=== PATIENT | female | born 1960 | race Caucasian/White ===

== ENCOUNTER → 2017-10-24 10:53 | Outpatient (REF) | payer BC, SELFPAY ==
[2017-10-24 13:47] LABS: Basophils % 0.3 % (0.1-2.0); Eosinophils # 0.1 K/mm3 (0.0-0.4); Eosinophils % 1.3 % (0.1-12.0); Hemoglobin 13.6 g/dL (12.2-16.2); Lymphocytes # 1.9 K/mm3 (0.7-4.5); Mean Corpuscular HGB Conc 31.6 g/dL (31.8-35.4); Mean Corpuscular Hemoglobin 30.9 pg (27.0-31.2); Mean Corpuscular Volume 97.9 fl (81-99); Mean Platelet Volume 11.5 fl (7.4-10.4); Monocytes # 0.3 K/mm3 (0.1-1.0); Monocytes % 4.4 % (1.7-9.3); Neutrophils # 3.9 K/mm3 (1.8-7.8); Platelet Count 173 K/mm3 (142-424); Red Blood Count 4.39 M/mm3 (4.20-5.40); Red Cell Distribution Width 12.8 % (11.5-17.5); White Blood Count 6.2 K/mm3 (4.8-10.8)
[2017-10-24 14:23] LABS: Alanine Aminotransferase 25 U/L (12-78); Albumin Level 3.7 gm/dL (3.4-5.0); Albumin/Globulin Ratio 1.2 (1.1-1.8); Alkaline Phosphatase 78 U/L (46-116); Anion Gap 9.4 mEq/L (5-15); Aspartate Amino Transferase 9 U/L (15-37); Bilirubin,Total 0.2 mg/dL (0.2-1.0); Blood Urea Nitrogen 15 mg/dL (7-18); Calcium 9.3 mg/dL (8.5-10.1); Carbon Dioxide 30 mmol/L (21.0-32.0); Chloride 105 mmol/L (98-107); Chol/HDL Ratio 3.2 (1-3.5); Cholesterol 193 mg/dL (140-200); Creatinine,Serum 0.72 mg/dL (0.55-1.02); Estimated Glomerular Filt Rate 84 ml/min (>60); GFR (African American) 102 ML/MIN (>60); Globulin 3.2 gm/dl (1.3-3.2); Glucose 140 mg/dL (74-106); HDL Cholesterol 61 mg/dL (29-89); LDL Cholesterol 110 mg/dL (0-130); Potassium 4.4 mmoL/L (3.5-5.1); Sodium 140 mmol/L (136-145); Thyroid Stimulating Hormone 0.97 uIU/ml (0.358-3.740); Total Protein,Serum 6.9 gm/dL (6.4-8.2); Triglycerides 109 mg/dL (30-200); VLDL Cholesterol 22 mg/dL (0-40)
[2017-10-24 14:36] LABS: C-Reactive Protein < 0.2 mg/L (0.0-0.9)
[2017-10-24 14:39] LABS: Hemoglobin A1C 7.7 % (0.0-7.0)
[2017-10-24 15:29] LABS: Erythrocyte Sedimentation Rate 25 mm/hr (0-30)
[2017-10-25 14:15] LABS: Anti-Jo-1 <0.2 AI (0.0-0.9); Anti-Smith Antibody <0.2 AI (0.0-0.9); Antichromatin Antibodies <0.2 AI (0.0-0.9); Antiscleroderma-70 Antibodies <0.2 AI (0.0-0.9); RNP Antibodies <0.2 AI (0.0-0.9); Sjogren's Anti-SS-A <0.2 AI (0.0-0.9); Sjogren's Anti-SS-B <0.2 AI (0.0-0.9)
[2017-10-26 12:00] LABS: Anti-Centromere B Antibodies <0.2 AI (0.0-0.9); Anti-Cyclic Citrullinated Pept 5 units (0-19); Anti-DNA (DS) Ab Qn <1 IU/mL (0-9); RA Latex Turbid. <10.0 IU/mL (0.0-13.9)
[2017-10-26 12:01] LABS: Vitamin D 25 Hydroxy 22.2 ng/mL (30.0-100.0)
[2017-10-27 19:13] LABS: Parathyroid Hormone Intact 23 pg/mL (15-65)
== END ==
LOC: LAB 10:53
PROVIDERS: Visit Provider Physician Assistant
DX: E11.9 Type 2 diabetes mellitus without complications (principal); M25.50 Pain in unspecified joint
CPT/HCPCS: 80053; 80061; 82043; 82652; 83036; 83970; 84436; 84443; 85025; 85651; 86038; 86140; 86200; 86431

== ENCOUNTER → 2017-11-09 12:57 | Outpatient (CLI) | payer BC, SELFPAY ==
--- NOTE | 2017-11-09 13:00 | MM_ITS ---
MM Dig screening mamm BI w/CAD CAD Screening COMPARISON: Digital mammograms 02/23/2012 and 03/20/2015 INDICATION: There is a history of breast cancer patient maternal aunt. There is been previous stereotactic biopsy left breast. TECHNIQUE: Standard CC and MLO images were obtained. R2 CAD reviewed. FINDINGS: Moderate fibroglandular densities are seen in the central portions of both breasts. Again noted are 2 biopsy clips left breast one of which is adjacent to a nodular density which is stable. There are couple benign-appearing calcifications right breast. There are stable nodes in both axilla. IMPRESSION: Fibrofatty parenchyma with no suspicious lesion seen recommend yearly follow-up BI-RADS Category: 2 Benign Finding(s) RECOMMENDED FOLLOW-UP: 1YR - 1 YEAR FOLLOW-UP (A letter has been sent to the patient regarding results of the study.)
== END ==
PROVIDERS: Family Provider Physician Assistant; PCP Emergency Medicine; Visit Provider Physician Assistant
DX: Z12.31 Encounter for screening mammogram for malignant neoplasm of breast (principal)
CPT/HCPCS: 77067

== ENCOUNTER → 2017-11-10 11:22 | Outpatient (CLI) | payer BC, SELFPAY ==
--- NOTE | 2017-11-10 11:24 | XR_ITS ---
EXAM: XR cervical spine 5V HISTORY: Neck pain ITS.REASON: pain ORDERING PHYSICIAN: Lidya Osman PATIENT AGE: 56 years COMPARISON: None FINDINGS: Normal alignment. There is moderate to severe degenerative disc disease at C4-C5 and C5-C6 worse at C5-C6 with endplate osteophytes. There is bilateral foraminal narrowing at C5-C6 and mild left foraminal narrowing at C3-C4 and C4-C5. No fracture or dislocation. No lytic or blastic change. IMPRESSION: Degenerative disc disease C4-C5 and C5-C6 with bilateral foraminal narrowing
== END ==
PROVIDERS: PCP Emergency Medicine; Visit Provider Nurse Practitioner Family
DX: M54.2 Cervicalgia (principal)
CPT/HCPCS: 72050

== ENCOUNTER → 2017-12-07 10:50 | Outpatient (CLI) | payer BC, SELFPAY ==
--- NOTE | 2017-12-07 10:51 | CA_ITS ---
PROCEDURE: 2-D M-mode and color Doppler study INDICATIONS FOR THE TEST: Chest painx COPD Heart Murmur Tobacco Smoking Palpitationsx Fatigue Syncope Edema HypertensionxDiabetes Mellitusx Rheumatic Fever SOB MACKAY Obesity Hyperlipidemiax Family History HD Additional History PATIENT INFORMATION HEIGHT: 5'3'' WEIGHT:174 GENDER: Female B/P:105/67 2-D/M-MODE INTERPRETATION: 2-D MEASUREMENTS OBSERVED VALUES IN CMS Right Ventricular Dimension (RVDd) 2.4 Interventricular Septum (Thickness)(IVsd) 1.0 Left Ventricular Internal Dimensions(LVIDd) 3.8 Left Ventricular Posterior Wall (Thickness)(LVPWd) 1.0 Aortic Root 2.7 Aortic Cusp Separation 1.3 Left Atrial Dimensions (LAD) 3.0 2D 1. Left atrium is normal size, left ventricle is normal size, there is no concentric left ventricular hypertrophy, visually estimated ejection fraction 55% with no regional wall motion abnormality. 2. The right atrium and right ventricle are normal size and contractility. 3. The aortic valve is minimally thickened and fibrosed. 4. The mitral and tricuspid valvular grossly normal. 5. The pulmonic valve is poorly visualized. 6. No significant pericardial effusion noted. DOPPLER INTERROGATION: Doppler interrogation of the aortic, mitral and tricuspid valvular presence of mild mitral and tricuspid regurgitation, tricuspid and jet velocity insufficient for calculation of the right ventricular systolic pressure, grade 1 diastolic dysfunction seen without tissue Doppler evidence of raised left atrial pressure. CONCLUSION: 1. Normal left ventricular size, visually estimated ejection fraction 55% with no obvious regional wall motion abnormality. Grade 1 diastolic dysfunction seen without tissue Doppler evidence of raised left atrial pressure. 2. Mild mitral and tricuspid regurgitation 3. No significant pericardial effusion noted.
--- NOTE | 2017-12-07 10:51 | NM_ITS ---
History and Indications: Dysrhythmia, hypertension, diabetes, hyperlipidemia, chest pain and shortness of breath Procedure: Patient exercised on Tucker protocol 7 minutes, resting heart rate was 88 bpm resting blood pressure 124/70, with exercise maximum heart rate achieved was 160 bpm which is greater than 85% of the maximum predicted heart rate , and the blood pressure was 180/74. Test was stopped due to shortness of breath, patient also had mild pressure in the chest. Patient has good exercise capacity achieved 10.1mets of workload on treadmill, the blood pressure response to exercise was adequate. Electrocardiogram: Resting electrocardiogram showed sinus rhythm nonspecific ST-T changes, with exercise occasional premature ventricular complex seen, less than 1.[address] segment depression noted from the baseline EKG. The EKG portion of the exercise Myoview is negative for ischemia Cardiac stress and resting SPECT images: Cardiac stress and rest SPECT images were obtained using technetium 99 Myoview 30.5 mCi at stress and 11.1 mCi at rest, gated SPECT further analysis of segmental wall motion and calculation of the ejection fraction also done. Cardiac stress and rest SPECT images show decreased tracer activity in the anteroseptal area which improves on the resting images suggestive of reversible ischemia, computer derived ejection fraction 57% with no obvious regional wall motion abnormality, right ventricle is normal size and contractility. Conclusion: 1. The EKG portion of the exercise Myoview is negative for ischemia, patient has good exercise capacity achieved 10.1mets of workload on treadmill, the blood pressure response to exercise was adequate, test was started due to chest pressure and shortness of breath. 2. Scintigraphic evidence of mild reversible ischemia involving the anteroseptal wall. Computer derived ejection fraction is 57% with no obvious regional wall motion abnormality, right ventricle is normal size and contractility. 3. Abnormal exercise Myoview study.
--- NOTE | 2017-12-07 12:22 | HMH.ITSHM ---
AMLODIPINE ASA ALENDRONATE METFORMIN LOSARTAN MELOXICAM ESCITALOPRAM ATENOLOL ATORVASTATIN GLIPIZIDE EXOMEPRA CALCIUM VITAMIN D
== END ==
PROVIDERS: Family Provider Physician Assistant; PCP Physician Assistant; Visit Provider Internal Medicine
DX: R07.89 Other chest pain (principal)
CPT/HCPCS: 78452; 93017; 93306; A9502

== ENCOUNTER 2017-12-15 08:00 | Outpatient (RCR) | payer BC, SELFPAY ==
--- NOTE | 2017-11-22 11:05 | HMH.PTOPEV ---
Rehab Outpatient Evaluation Rehab OP Evaluation Start: 11/21/17 11:46 Freq: Status: Active Protocol: Document 11/21/17 11:46 MICHAELMONSERRAT (Rec: 11/21/17 13:21 SHANTANU [id number]) Electronically Signed By Peng Johnson, PT 11/21/17 11:46 Outpatient Therapy Subjective History Subjective History Ms. Ram is a 57 year old female who presents to outpatient PT with BUE pain/ radicular symptoms to both hands L>R of insidious onset since . Pt. reports positive diagnositc imaging for C4-C6 DDD and C5 bone spur . Pt. reports bilateral hip steroid injection that did not provide symptom relief. PMH inludes type II diaetes and R humerus fracture. Pt. currently taking muscle relaxers and Prednisone. Chief Complaint Pain Paresthesia Weakness Decreased Nursing Program Coordinator Strength Symptom Type Burning Numbness Tingling Shooting Symptoms Relieved By Rest/Positioning Prescription Meds Symptoms Aggravated By Sitting Twisting Prior Functional Limitations None Current Functional Limitations Reaching Lifting Housework Driving Sleeping Symptom Description Activity Dependent Level of pain today (0-10) 4 Pain scale - at its best (0-10) 3 Pain scale - at its worst (0-10) 10 Cervical Eval Palpation Cervical Muscles L Cervical Paraspinal L Upper Trapezius Cervical/Thoracic Palpation Findings Tenderness Posture Head/C-Spine Posture Sitting Position Flexed Extended Head/C-Spine Posture Standing Position Flexed Extended Flexibility Deficits Upper Trapezius Muscle Length (R) Moderate Tightness (L) Moderate Tightness Levaetor Scapulae Muscle Length (R) Moderate Tightness (L) Moderate Tightness Scalene Group Muscle Length (R) Moderate Tightness (L) Moderate Tightness Sternocleidomastoid Muscle Length (R) Moderate Tightness
== END 2017-12-15 08:01 | disposition home or self-care (01) ==
LOC: PT 08:00
PROVIDERS: Family Provider Physician Assistant; PCP Emergency Medicine; Visit Provider Nurse Practitioner Family
DX: M54.2 Cervicalgia (principal)
CPT/HCPCS: 97010; 97012; 97014; 97035; 97110; G0283

== ENCOUNTER → 2018-06-26 14:28 | Outpatient (CLI) | payer BC, SELFPAY ==
[2018-06-26 14:35] LABS: Basophils % 0.3 % (0.1-2.0); Eosinophils # 0.1 K/mm3 (0.0-0.4); Eosinophils % 1.9 % (0.1-12.0); Hematocrit 40.8 % (37.0-47.0); Hemoglobin 13.1 g/dL (12.2-16.2); Lymphocytes # 1.6 K/mm3 (0.7-4.5); Lymphocytes % 28.6 % (10-50); Mean Corpuscular HGB Conc 32.2 g/dL (31.8-35.4); Mean Corpuscular Volume 96.1 fl (81-99); Mean Platelet Volume 11.1 fl (7.4-10.4); Monocytes # 0.3 K/mm3 (0.1-1.0); Monocytes % 4.6 % (1.7-9.3); Neutrophils # 3.5 K/mm3 (1.8-7.8); Neutrophils % 64.5 % (37.0-80.0); Platelet Count 193 K/mm3 (142-424); Red Blood Count 4.24 M/mm3 (4.20-5.40); Red Cell Distribution Width 12.9 % (11.5-17.5); White Blood Count 5.4 K/mm3 (4.8-10.8)
[2018-06-26 15:09] LABS: Alanine Aminotransferase 22 U/L (12-78); Albumin Level 3.7 gm/dL (3.4-5.0); Albumin/Globulin Ratio 1.2 (1.1-1.8); Alkaline Phosphatase 84 U/L (46-116); Anion Gap 13.4 mEq/L (5-15); Aspartate Amino Transferase 13 U/L (15-37); Bilirubin,Total 0.2 mg/dL (0.2-1.0); Blood Urea Nitrogen 17 mg/dL (7-18); Calcium 8.9 mg/dL (8.5-10.1); Carbon Dioxide 27 mmol/L (21.0-32.0); Chloride 104 mmol/L (98-107); Chol/HDL Ratio 2.6 (1-3.5); Cholesterol 167 mg/dL (140-200); Estimated Glomerular Filt Rate 87 ml/min (>60); GFR (African American) 105 ML/MIN (>60); Globulin 3.1 gm/dl (1.3-3.2); Glucose 132 mg/dL (74-106); HDL Cholesterol 64 mg/dL (29-89); LDL Cholesterol 88 mg/dL (0-130); Potassium 4.4 mmoL/L (3.5-5.1); Sodium 140 mmol/L (136-145); T4 (Thyroxine) 7.3 ug/dl (4.7-13.3); Thyroid Stimulating Hormone 0.44 uIU/ml (0.358-3.740); Total Protein,Serum 6.8 gm/dL (6.4-8.2); Triglycerides 74 mg/dL (30-200); VLDL Cholesterol 15 mg/dL (0-40)
[2018-06-26 18:37] LABS: Hemoglobin A1C 8.8 % (0.0-7.0)
[2018-06-29 09:26] LABS: Vitamin D 25 Hydroxy 24.3 ng/mL (30.0-100.0)
== END ==
PROVIDERS: PCP Physician Assistant; Visit Provider Physician Assistant
DX: E11.9 Type 2 diabetes mellitus without complications (principal); E78.5 Hyperlipidemia, unspecified; E55.9 Vitamin D deficiency, unspecified
CPT/HCPCS: 80053; 80061; 82652; 83036; 84436; 84443; 85025

== ENCOUNTER → 2018-08-27 18:29 | Outpatient (CLI) | payer BC, SELFPAY | PROVIDERS: Visit Provider Physician Assistant | DX: R30.9 Painful micturition, unspecified (principal) | CPT/HCPCS: 87086 ==

== ENCOUNTER → 2018-08-28 08:15 | Outpatient (CLI) | payer BC, SELFPAY ==
--- NOTE | 2018-08-28 08:18 | NVE_ITS ---
Venous Exam Indications: 729.5 Pain in limb. 729.81 Swelling of limb. IMPRESSIONS 1. There is no evidence of significant Reflux. 2. No evidence of deep or superficial vein thrombosis involving the left lower extremity History: Risk factors: Family history of deep vein thrombosis. Hypertension. Left lower extremity venous duplex evaluation. Doppler flow study including spectral analysis, color and chavarria scale imaging. Location: Vascular laboratory. Patient status: Outpatient. Tables: Venous flow and imaging: + +-------+ + Location Overall Flow properties + +-------+ + Left common femoral Patent Normal phasicity; spontaneous; normal augmentation; compressible + +-------+ + Left saphenofemoral junction Patent Compressible + +-------+ + Left profunda femoral Patent Compressible + +-------+ + Left femoral Patent Normal phasicity; spontaneous; normal augmentation; compressible + +-------+ + Left greater saphenous Patent Normal phasicity; spontaneous; normal augmentation; compressible + +-------+ + Left popliteal Patent Normal phasicity; spontaneous; normal augmentation; compressible + +-------+ + Left posterior tibial Patent Compressible + +-------+ + Left peroneal Patent Compressible + +-------+ + Left gastrocnemius Patent Compressible + +-------+ + Left soleal Patent Compressible + +-------+ + (Report amended ) Electronically signed by: Qamar Dunne [id number]
== END ==
PROVIDERS: PCP Physician Assistant; Visit Provider Physician Assistant
DX: M79.89 Other specified soft tissue disorders (principal)
CPT/HCPCS: 93971

== ENCOUNTER → 2018-10-09 13:18 | Outpatient (CLI) | payer BC, SELFPAY ==
[2018-10-09 13:50] LABS: Basophils % 0.2 % (0.1-2.0); Eosinophils # 0.1 K/mm3 (0.0-0.4); Eosinophils % 1.9 % (0.1-12.0); Hematocrit 41.7 % (37.0-47.0); Hemoglobin 13.6 g/dL (12.2-16.2); Lymphocytes # 1.4 K/mm3 (0.7-4.5); Lymphocytes % 22.9 % (10-50); Mean Corpuscular HGB Conc 32.6 g/dL (31.8-35.4); Mean Corpuscular Hemoglobin 30.9 pg (27.0-31.2); Mean Platelet Volume 11.1 fl (7.4-10.4); Monocytes # 0.2 K/mm3 (0.1-1.0); Neutrophils # 4.2 K/mm3 (1.8-7.8); Platelet Count 195 K/mm3 (142-424); Red Blood Count 4.39 M/mm3 (4.20-5.40)
[2018-10-09 19:39] LABS: Alanine Aminotransferase 31 U/L (12-78); Albumin Level 3.7 gm/dL (3.4-5.0); Albumin/Globulin Ratio 1.3 (1.1-1.8); Alkaline Phosphatase 83 U/L (46-116); Anion Gap 12.2 mEq/L (5-15); Aspartate Amino Transferase 11 U/L (15-37); Bilirubin,Total 0.2 mg/dL (0.2-1.0); Blood Urea Nitrogen 13 mg/dL (7-18); Calcium 9.4 mg/dL (8.5-10.1); Carbon Dioxide 29 mmol/L (21.0-32.0); Chloride 107 mmol/L (98-107); Chol/HDL Ratio 2.7 (1-3.5); Cholesterol 128 mg/dL (140-200); Creatinine,Serum 0.86 mg/dL (0.55-1.02); Estimated Glomerular Filt Rate 69 ml/min (>60); GFR (African American) 83 ML/MIN (>60); Globulin 2.9 gm/dl (1.3-3.2); Glucose 75 mg/dL (74-106); HDL Cholesterol 48 mg/dL (29-89); LDL Cholesterol 63 mg/dL (0-130); Potassium 4.2 mmoL/L (3.5-5.1); Sodium 144 mmol/L (136-145); T4 (Thyroxine) 7.8 ug/dl (4.7-13.3); Thyroid Stimulating Hormone 0.88 uIU/ml (0.358-3.740); Total Protein,Serum 6.6 gm/dL (6.4-8.2); Triglycerides 87 mg/dL (30-200); VLDL Cholesterol 17 mg/dL (0-40)
== END ==
PROVIDERS: Visit Provider Physician Assistant
DX: E11.9 Type 2 diabetes mellitus without complications (principal)
CPT/HCPCS: 80053; 80061; 82652; 83036; 84436; 84443; 85025

== ENCOUNTER 2018-11-08 08:00 | Outpatient (RCR) | payer BC, SELFPAY ==
--- NOTE | 2018-09-12 14:23 | HMH.PTOPWND ---
Rehab Outpt Wound Evaluation Rehab OP Wound Evaluation Start: 09/12/18 14:17 Freq: Status: Active Protocol: Document 09/12/18 14:17 CHRISTIAN (Rec: 09/12/18 14:23 PHORNE [id number]) Electronically Signed By Luke Mobley, NINI 09/12/18 14:17 Subjective/History History History Pt is a 57 yowf who presents with c/o left LE edema x 1-2 mos with insidious onset of symptoms. She reports being treated for cellulitis due to redness in spots on her left lower leg, but no redness apparent today. She reports she wears compression stockings to decrease edema at baseline. She reports mild tenderness to palpation throughout the left lower leg and doppler US was negative for DVT. She has hx of removal of lymph nodes from her left groin ~ 3 yrs ago, HTN, and DM -II. Lymphedema Eval Classification of Lymphedema Secondary Lymphedema Yes Stemmer's sign Stemmer's Sign no Stage of Lymphedema Lymphedema stages Stage I (Pitting edema, reduces w/ elevation, no fibrosis) Skin Changes Dry Skin Yes Pain Scale Pain Scale (0-10) 6 Affected Extremities Areas Affected by Lymphedema/Edema Left Lower Extremity Manual Lymphatic Drainage Treatment Area MLD Treatment Area Left Lower Extremity Wound Problems/Impairments Impairments Problems/Impairmments Palpation Tenderness Increased Edema Subjective C/O Pain Impaired Self Care/Self Management Prognosis Rehab Potential Good Clinical Impression Consistent with Diagnosis Yes Short Term Goals Number of Weeks 4 Decreased Palpation Tenderness Yes: to min Decrease Subjective C/O Pain Yes: 4/10 Patient to Understand Lymphedema Yes Treatment and Exercises Decrease Girth Measurments by (cm) Yes: by 3 cm Usp Goals Number of Weeks 8 Decreased Palpation Tenderness Yes: to none Decrease Subjective C/O Pain Yes: 2/10 Patient to be Ind w/ HEP Yes Patient to Adhere Lymphedema Precautions Yes Decrease Girth Measurments by (cm) Yes: by 10 cm Outpatient Therapy Plan of Care Treatment Plan May Include Therapeutic Exercise Including [place]
--- NOTE | 2018-10-19 10:55 | HMH.RHREAS ---
Rehab Reassessment Rehab OP Re-assessment Start: 10/19/18 10:53 Freq: Status: Active Protocol: Document 10/19/18 10:53 CHRISTIAN (Rec: 10/19/18 10:55 CHRISTIAN [id number]) Electronically Signed By Luke Mobley, PT 10/19/18 10:53 Rehab Re-assessment Subjective Subjective Pt reports less pain overall, less edema at night, intermittent sharp pain in top of left foot. Objective Objective Notes Circumferential measurements: Left LE total = 278.3 cm which is -6.3 cm since initial eval . Assessment Progress Assessment Progressing as Expected Assessment Notes Pt decreasing edema and discomfort steadily. Patient goals met ST-4 Goals Not Met LT-5 Revised Goals none Plan Plan Continue per initial POC Frequency of Therapy 2 x/wk Duration of therapy 8 wks Time and Billing Re-Eval Time 15 Re-Eval Billing Units 1 PHYSICIAN CERTIFICATION: I certify the specified therapy services for Afshan Ram are required, authorized, and reviewed every 30 days.
== END 2018-11-08 08:05 | disposition home or self-care (01) ==
LOC: PT 08:00
PROVIDERS: Visit Provider Physician Assistant
DX: I89.0 Lymphedema, not elsewhere classified (principal)
CPT/HCPCS: 97140; 97162; 97164

== ENCOUNTER 2018-12-18 12:59 | Outpatient (RCR) | payer BC, SELFPAY ==
--- NOTE | 2018-12-18 13:35 | HMH.PTOPWND ---
Rehab Outpt Wound Evaluation Rehab OP Wound Evaluation Start: 12/18/18 13:29 Freq: Status: Active Protocol: Document 12/18/18 13:29 CHRISTIAN (Rec: 12/18/18 13:34 PHORNE [id number]) Electronically Signed By Luke Mobley, PT 12/18/18 13:29 Subjective/History History History Pt is 58 yowf who presents with c/o left LE edema x several mos which began after left LE lymph node disection due to melanoma. She reports intermittent tingling in the LEs and pain. She reports swelling in worse with LE in a dependent position and better after sleeping with feet propped at night. Her PMH includes DM-II (poorly controlled), HTN, right proximal humerus fx, 3 C- sections. Subjective Subjective Her pain is 7/10 at worst in the left LE and she reports no tenderness to palpation at this time. Lymphedema Eval Classification of Lymphedema Secondary Lymphedema Yes Stemmer's sign Stemmer's Sign no Stage of Lymphedema Lymphedema stages Stage I (Pitting edema, reduces w/ elevation, no fibrosis) Skin Changes Dry Skin Yes Other Changes Yes Pain Scale Pain Scale (0-10) 7 Affected Extremities Areas Affected by Lymphedema/Edema Left Lower Extremity Manual Lymphatic Drainage Treatment Area MLD Treatment Area Left Lower Extremity Wound Problems/Impairments Impairments Problems/Impairmments Impaired Sitting,Increased Edema,Lymphedema Present, Subjective C/O Pain,Impaired Self Care/Self Management Prognosis Rehab Potential Good Clinical Impression Consistent with Diagnosis Yes Short Term Goals Number of Weeks 4 Decrease Subjective C/O Pain Yes: 5/10 Patient to Understand Lymphedema Yes Treatment and Exercises Decrease Girth Measurments by (cm) Yes: by 5 cm Drill Instructor Goals Number of Weeks 8 Decrease Subjective C/O Pain Yes: 3/10 Patient to be Ind w/ HEP Yes Patient to be Ind w/ [place] Yes Compression Garments Patient to Adhere Lymphedema Precautions Yes Decrease Girth Measurments by (cm) Yes: by 20 cm Outpatient Therapy Plan of Care
== END 2018-12-18 13:05 | disposition home or self-care (01) ==
LOC: PT 12:59
PROVIDERS: Visit Provider Physician Assistant
DX: R60.0 Localized edema (principal)
CPT/HCPCS: 97140; 97162

== ENCOUNTER → 2019-04-12 16:59 | Outpatient (CLI) | payer BC, SELFPAY ==
--- NOTE | 2019-04-12 17:22 | XR_ITS ---
PROCEDURE: XR HAND RT MIN 3V CLINICAL INDICATION: pain Pain at the base of the thumb COMPARISON: No exams were available for comparison FINDINGS: There are severe osteoarthritic changes at the 1st metacarpal-carpal joint with lateral periarticular calcification which could be sequela from old injury or dystrophic calcification from chronic degenerative change. There does appear to be a defect in the proximal aspect of the 1st metacarpal suggesting that this may represent an old fracture. No other significant anomalies are evident. IMPRESSION: Osteoarthritic change 1st metacarpal carpal joint with possible old fracture at the base of the 1st metacarpal. There is mild lateral subluxation of the 1st metacarpal. Dictated by: Qamar Dunne MD 04/12/2019 18:17 Signed by: <Electronically signed by Qamar Dunne MD in [place]> 04/12/2019 18:17
== END ==
PROVIDERS: Visit Provider Nurse Practitioner Family
DX: M79.641 Pain in right hand (principal); R35.1 Nocturia
CPT/HCPCS: 73130; 87086

== ENCOUNTER → 2019-04-12 17:15 | Outpatient (CLI) | payer BC, SELFPAY | PROVIDERS: PCP Nurse Practitioner Family; Visit Provider Nurse Practitioner Family | DX: M79.641 Pain in right hand (principal) ==

== ENCOUNTER → 2019-05-21 12:23 | Outpatient (CLI) | payer BC, SELFPAY ==
[2019-05-21 13:03] LABS: Basophils % 0.7 % (0.1-2.0); Eosinophils # 0.1 K/mm3 (0.0-0.4); Eosinophils % 1.8 % (0.1-12.0); Hematocrit 42.2 % (37.0-47.0); Hemoglobin 13.2 g/dL (12.2-16.2); Lymphocytes # 1.4 K/mm3 (0.7-4.5); Lymphocytes % 33.6 % (10-50); Mean Corpuscular HGB Conc 31.2 g/dL (31.8-35.4); Mean Corpuscular Hemoglobin 30.3 pg (27.0-31.2); Mean Corpuscular Volume 97.2 fl (81-99); Mean Platelet Volume 11.8 fl (7.4-10.4); Monocytes # 0.2 K/mm3 (0.1-1.0); Monocytes % 4.6 % (1.7-9.3); Neutrophils # 2.4 K/mm3 (1.8-7.8); Neutrophils % 59.2 % (37.0-80.0); Platelet Count 179 K/mm3 (142-424); Red Blood Count 4.35 M/mm3 (4.20-5.40); Red Cell Distribution Width 13.5 % (11.5-17.5); White Blood Count 4.1 K/mm3 (4.8-10.8)
[2019-05-21 14:04] LABS: Alanine Aminotransferase 17 U/L (12-78); Albumin Level 3.7 gm/dL (3.4-5.0); Albumin/Globulin Ratio 1.2 (1.1-1.8); Alkaline Phosphatase 87 U/L (46-116); Anion Gap 14.3 mEq/L (5-15); Aspartate Amino Transferase 6 U/L (15-37); Bilirubin,Total 0.4 mg/dL (0.2-1.0); Blood Urea Nitrogen 13 mg/dL (7-18); Calcium 9.1 mg/dL (8.5-10.1); Carbon Dioxide 25 mmol/L (21.0-32.0); Chloride 103 mmol/L (98-107); Chol/HDL Ratio 3.1 (1-3.5); Cholesterol 193 mg/dL (140-200); Creatinine,Serum 0.69 mg/dL (0.55-1.02); Estimated Glomerular Filt Rate 88 ml/min (>60); GFR (African American) 106 ML/MIN (>60); Globulin 3.1 gm/dl (1.3-3.2); Glucose 229 mg/dL (74-106); HDL Cholesterol 63 mg/dL (29-89); LDL Cholesterol 116 mg/dL (0-130); Potassium 4.3 mmoL/L (3.5-5.1); Sodium 138 mmol/L (136-145); T4 (Thyroxine) 9.2 ug/dl (4.7-13.3); Thyroid Stimulating Hormone 0.99 uIU/ml (0.358-3.740); Total Protein,Serum 6.8 gm/dL (6.4-8.2); Triglycerides 69 mg/dL (30-200); VLDL Cholesterol 14 mg/dL (0-40)
[2019-05-21 14:40] LABS: Hemoglobin A1C 8.3 % (0.0-7.0)
[2019-05-22 16:46] LABS: Vitamin D 25 Hydroxy 22.8 ng/mL (30.0-100.0)
[2019-05-22 16:47] LABS: Microalbumin, Urine 5.6 ug/mL (Not Estab.)
== END ==
PROVIDERS: Visit Provider Physician Assistant
DX: E11.9 Type 2 diabetes mellitus without complications (principal); E55.9 Vitamin D deficiency, unspecified; Z79.84 Long term (current) use of oral hypoglycemic drugs
CPT/HCPCS: 80053; 80061; 82043; 82652; 83036; 84436; 84443; 85025

== ENCOUNTER → 2019-06-12 16:53 | Outpatient (CLI) | payer BC, SELFPAY ==
--- NOTE | 2019-06-12 16:54 | MM_ITS ---
PROCEDURE: MM DIG SCREENING MAMM BI W/CAD CLINICAL INDICATION: Screening There is a history of breast cancer patient's paternal aunt. There has been previous biopsy left breast for benign disease. COMPARISON: [facility] MAMM SCREEN BILAT DIG PNL from 02/23/2012 [facility] DIG MAMM-SCREEN LUCIANO from 03/20/2015 [facility] MM Dig screening mamm BI w/CAD from 11/09/2017 TECHNIQUE: Standard CC and MLO images were obtained. R2 CAD reviewed. FINDINGS: Scattered fibroglandular densities are seen in both breasts. There are 2 biopsy clips left breast. There is a nodular density adjacent to 1 of the biopsy clips and this is been stable on several previous studies. However there is a new collection of microcalcifications lower outer quadrant at approximately the 3 to 4 o'clock position. The microcalcifications some have a somewhat amorphous and indeterminate appearance. Recommend the patient return for spot compression views and ultrasound IMPRESSION: Fibrofatty parenchyma with new mildly suspicious collection of microcalcifications left breast BI-RAD Category: 0 Need Additional Imaging Evaluation FOLLOW-UP: IMM Immediate Follow-up Recommended (A letter has been sent to the patient regarding results of the study.) Dictated by: Dr. Raffi Garcia MD 06/15/2019 11:[address] Raffi Garcia MD in [place] 06/15/2019 11:12
== END ==
PROVIDERS: PCP Nurse Practitioner Family; Visit Provider Nurse Practitioner Family
DX: Z12.31 Encounter for screening mammogram for malignant neoplasm of breast (principal)
CPT/HCPCS: 77067

== ENCOUNTER → 2019-07-15 13:40 | Outpatient (CLI) | payer BC, SELFPAY ==
--- NOTE | 2019-07-15 13:42 | US_ITS ---
PROCEDURE: US BREAST LT COMPLETE CLINICAL INDICATION: abnormal mammogrm COMPARISON: MM DIG MAMM DX UNILAT LT CAD from 07/15/2019 FINDINGS: Rather homogeneous echogenicity is seen consistent with primarily fatty breast parenchyma. There is a small oval hypoechoic lesion 12 o'clock position near the nipple measuring 1.2 x 0.4 cm and this may be related to the density seen adjacent to the biopsy clip on the recent problem solving views. There is a normal appearing node in the axilla. IMPRESSION: Essentially unremarkable ultrasound left breast patient to have biopsy of the microcalcifications as described on the mammogram report Dictated by: Dr. Raffi Garcia MD 07/17/2019 10:[address] Raffi Garcia MD in [place] 07/17/2019 10:13
--- NOTE | 2019-07-15 13:42 | MM_ITS ---
PROCEDURE: MM DIG MAMM DX UNILAT LT CAD CLINICAL INDICATION: abnormal mammogram COMPARISON: [facility] DIG MAMM-SCREEN LUCIANO from 03/20/2015 [facility] MM Dig screening mamm BI w/CAD from 11/09/2017 MM DIG SCREENING MAMM BI W/CAD from 06/12/2019 TECHNIQUE: Spot-compression MLO and CC views were obtained FINDINGS: The additional views of the cluster of microcalcifications and again they were not present on the previous study 11/09/2017. They have primarily a benign appearance though couple of calcifications are indeterminate. In view of the fact that they were not present on the previous exam recommend the patient have IMPRESSION: New microcalcifications left breast some of which appear to be indeterminate BI-RAD Category: 4 Suspicious Abnormality - Biopsy Considered FOLLOW-UP: BIO Biopsy Recommended (A letter has been sent to the patient regarding results of the study.) Dictated by: Dr. Raffi Garcia MD 07/17/2019 10:[address] Raffi Garcia MD in [place] 07/17/2019 10:08
== END ==
PROVIDERS: PCP Nurse Practitioner Family; Visit Provider Nurse Practitioner Family
DX: R92.0 Mammographic microcalcification found on diagnostic imaging of breast (principal)
CPT/HCPCS: 76641; 77065

== ENCOUNTER → 2019-09-18 12:25 | Outpatient (CLI) | payer BC, SELFPAY ==
--- NOTE | 2019-09-18 12:25 | MM_ITS ---
PROCEDURE: MM STEREOTACTIC LOC LT CLINICAL INDICATION: microcalcifications LEFT breast Suspicious calcifications left breast Informed consent was obtained prior to the procedure. TECHNIQUE: The patient was given 1 mg of Xanax, Lortab 5 mg, and analgesia and minor sedation. The patient was placed on the stereotactic table and the abnormality was localized in the most appropriate projection. The breast was prepped in the routine manner, with sterile prep and the overlying skin anesthetized. A 3 to 4 mm skin incision was performed and the 9 gauge sorus vacuum-assisted core biopsy needle was advanced to the region of the calcification. Pre- and post fire images were obtained. After adequate positioning relative to the calcifications was ensured, multiple biopsies were obtained in the region of the calcifications specifically. The core biopsies obtained were sent for specimen mammography. After the calcifications were indeed identified on the specimen mammogram, the procedure was terminated. The patient tolerated the procedure well without complications. A tiny titanium nonferromagnetic MicroMark was positioned through the mammotome needle into the biopsy site. PATHOLOGY: Fat necrosis with fibrosis and calcification. Benign breast stromal fibrosis and adenosis. Rare calcifications with adenosis. Negative for carcinoma. IMPRESSION: 1. Successful stereotactic vacuum-assisted core biopsy of the breast calcifications showing benign findings. 2. Successful placement of a titanium metal MicroMark. 3. Pathologic analysis shows benign findings. 4. No noted complications. SPECIMEN RADIOGRAPH: The mammographically evident calcifications from the prior study are currently evident within the Nahid dish and within the specimens obtained during mammotome procedure. This is considered an adequate specimen and the procedure was terminated. IMPRESSION: Successful removal of described breast calcifications. BREAST MAMMOGRAM: Compared to the prior study, the previously noted calcification have been removed. A small MicroMark clip was inserted into the region of the calcifications. There is evidence of soft tissue changes in the region of the biopsy was soft tissue gas and edema. 5. Adequate placement of the MicroMark clip postbiopsy. 6. Postbiopsy changes within the breast. Dictated by: Qamar Dunne MD 09/26/2019 17:58 Electronically signed by Qamar Dunne MD in [place] 09/26/2019 17:58
== END ==
PROVIDERS: PCP Physician Assistant; Visit Provider Physician Assistant
DX: R92.8 Other abnormal and inconclusive findings on diagnostic imaging of breast (principal)
CPT/HCPCS: 19081; 76098; 77065; 88305

== ENCOUNTER → 2020-01-29 15:57 | Outpatient (CLI) | payer BC, SELFPAY ==
--- NOTE | 2020-01-29 15:58 | CA_ITS ---
APPROVED REPORT Left Lower Extremity Venous Study for DVT. Science Analyst: CT Indications Lower Extremity Pain: LLE pain and swelling Vein Imaging CFV (L): compressive, spontaneous, phasic, augmentation SFJ (L): compressive, spontaneous, phasic, augmentation FEM (L): compressive, spontaneous, phasic, augmentation POP (L): compressive, spontaneous, phasic, augmentation DFV (L): compressive, spontaneous, phasic, augmentation PTV (L): compressive, spontaneous, phasic, augmentation GSV (L): compressive, spontaneous, phasic, augmentation SSV (L): compressive, spontaneous, phasic, augmentation Peroneals (L):compressive, spontaneous, phasic, augmentation GAS (L): compressive, spontaneous, phasic, augmentation Findings LLE Neg for DVT/SVT. vessels fully compressible. no reflux noted. Conclusion No evidence of DVT or superficial thrombophlebitis in the veins scanned of the left lower extremity. Electronically signed by : Qamar Dunne MD 01/30/2020 18:34:23
== END ==
PROVIDERS: PCP Physician Assistant; Visit Provider Physician Assistant
DX: M79.605 Pain in left leg (principal)
CPT/HCPCS: 93971

== ENCOUNTER → 2020-02-28 13:52 | Outpatient (CLI) | payer BC, SELFPAY ==
[2020-02-28 14:09] LABS: Anion Gap 13.5 mEq/L (5-15); Blood Urea Nitrogen 16 mg/dl (7-17); Calcium 9.4 mg/dl (8.4-10.2); Carbon Dioxide 27 mmol/L (22.0-30.0); Chloride 102 mmol/L (98-107); Estimated Glomerular Filt Rate 74 ml/min (>60); GFR (African American) 89 ML/MIN (>60); Glucose 85 mg/dl (74-100); Potassium 4.5 mmoL/L (3.5-5.1); Sodium 138 mmol/L (136-145)
== END ==
PROVIDERS: Visit Provider Emergency Medicine
DX: E87.6 Hypokalemia (principal)
CPT/HCPCS: 80048

== ENCOUNTER 2020-03-03 10:00 | Outpatient (RCR) | payer BC, SELFPAY | END 2020-03-03 10:05 | disposition home or self-care (01) | LOC: PT 10:00 | PROVIDERS: PCP Physician Assistant; Visit Provider Physician Assistant | DX: I89.0 Lymphedema, not elsewhere classified (principal) | CPT/HCPCS: 97140; 97162 ==

== ENCOUNTER 2020-08-05 16:00 | Outpatient (RCR) | payer BC, SELFPAY ==
--- NOTE | 2020-04-17 08:37 | HMH.PTOPWND ---
Rehab Outpt Wound Evaluation Rehab OP Wound Evaluation Start: 04/17/20 08:27 Freq: Status: Active Protocol: Document 04/17/20 08:27 CHRISTIAN (Rec: 04/17/20 08:37 PHORASHID [id number]) Electronically Signed By Luke Mobley, PT 04/17/20 08:27 Subjective/History History History Pt is 59 yowf who presents with c/o continued L LE lymphedema for several years S /P L inguinal lymph node removal ~ 4 yrs ago. She reports she was prescribed Lasix for diuresis, which has helped somewhat recently. She also reports she has only been wearing her compression on the L LE sporadically. She reports mild pain in the L ankle, worse with increased edema. Subjective Subjective Pain currently 4/10 per her report, 2+ tenderness to palpation around L gaitor area . 1+ pitting edema on the L foot and ankle. L ankle MMT : grossly 5/5 throughout. Lymphedema Eval Classification of Lymphedema Secondary Lymphedema Yes Stemmer's sign Stemmer's Sign no Stage of Lymphedema Lymphedema stages Stage I (Pitting edema, reduces w/ elevation, no fibrosis) Skin Changes Dry Skin Yes Pain Scale Pain Scale (0-10) 4 Affected Extremities Areas Affected by Lymphedema/Edema Left Lower Extremity Manual Lymphatic Drainage Treatment Area MLD Treatment Area Left Lower Extremity Wound Problems/Impairments Impairments Problems/Impairmments Palpation Tenderness,Impaired Endurance,Impaired Recreational Activities, Lymphedema Present,Subjective C/O Pain,Impaired Self Care/ Self Management Prognosis Rehab Potential Good Clinical Impression Consistent with Diagnosis Yes Short Term Goals Number of Weeks 4 Decreased Palpation Tenderness Yes: to min Decrease Edema Yes Decrease Subjective C/O Pain Yes: 3/10 Patient to Understand Lymphedema Yes Treatment and Exercises Fci Goals Number of Weeks 8 Decreased Palpation Tenderness Yes: to none Return to Recreational Activities Yes Decrease Lymphed
--- NOTE | 2020-05-19 15:23 | HMH.RHREAS ---
Rehab Reassessment Rehab OP Re-assessment Start: 05/19/20 15:20 Freq: Status: Active Protocol: Document 05/19/20 15:21 CHRISTIAN (Rec: 05/19/20 15:23 PHORASHID [id number]) Electronically Signed By Luke Mobley, PT 05/19/20 15:21 Rehab Re-assessment Subjective Subjective Pt reports less pain overall, less tenderness to palpation. Objective Objective Notes Increased fibrotic edema noted in the L ankle and foot this date. Less pitting noted proximally toward the knee. Assessment Progress Assessment Progressing as Expected Assessment Notes Continued fibrotic and pitting edema, less pain overall. Patient goals met ST,2,3,4 Goals Not Met LT,2,3,4,5,6 Revised Goals none Plan Plan Continue per initial POC. Frequency of Therapy 2x/wk Duration of therapy 8 wks Time and Billing Re-Eval Time 15 Re-Eval Billing Units 1 PHYSICIAN CERTIFICATION: I certify the specified therapy services for Afshan Ram are required, authorized, and reviewed every 30 days.
--- NOTE | 2020-06-16 11:17 | HMH.RHREAS ---
Rehab Reassessment Rehab OP Re-assessment Start: 05/19/20 15:20 Freq: Status: Active Protocol: Document 06/16/20 11:16 CHRISTIAN (Rec: 06/16/20 11:17 PHORASHID [id number]) Electronically Signed By Luke Mobley, PT 06/16/20 11:16 Rehab Re-assessment Subjective Subjective Pt reports pain intermittently worse on the anterior L gonsales. Objective Objective Notes L LE pitting remains in the foot 2+, less fibrotic edema noted. Assessment Progress Assessment Progressing as Expected Assessment Notes Continues to have increased pain per her report, as well as increased L foot edema. Patient goals met ST,2,3,4 Goals Not Met LT,2,3,4,5,6 Revised Goals none Plan Plan Continue per initial POC. Frequency of Therapy 2x/wk Duration of therapy 8 wks Time and Billing Re-Eval Time 15 Re-Eval Billing Units 1 PHYSICIAN CERTIFICATION: I certify the specified therapy services for Afshan Ram are required, authorized, and reviewed every 30 days.
== END 2020-08-05 16:05 | disposition home or self-care (01) ==
LOC: PT 16:00
PROVIDERS: PCP Physician Assistant; Visit Provider Physician Assistant
DX: R60.0 Localized edema (principal); M79.662 Pain in left lower leg
CPT/HCPCS: 97140; 97162; 97164; 97760

== ENCOUNTER 2020-10-10 18:48 | Emergency (ER) | payer BC, SELFPAY ==
--- NOTE | 2020-10-10 18:54 | XR_ITS ---
PROCEDURE: XR HAND RT MIN 3V XR WRIST RT MIN 3V Referring Doctor: Reta Curtis Patient Age:59Y CLINICAL INDICATION: FALL' pain at elbow and thumb and MCP joint after falling on ice and catching herself COMPARISON: CR XR HAND RT MIN 3V from 04/12/2019 CR XR WRIST RT MIN 3V from 10/10/2020 TECHNIQUE: Right hand 3 View AP, Oblique, Lateral. Right wrist 3View AP, Oblique, Lateral FINDINGS: The right hand and right wrist are reviewed together RIGHT HAND: No acute fracture or dislocation. No lytic or blastic change.. The PIP and DIP joints and MCP joints are well maintained However there is severe arthritic changes at the 1st carpal-metacarpal joint with similar appearance seen March 2019. No acute fracture seen here today There is marked narrowing, sclerosis and hypertrophic changes about this joint with wearing over time resulting in erosive convexity where proximal phalanx thumb articulates with the trapezium. Again noting relative lateral subluxation of the base of the proximal phalanx of thumb relative to the trapezium which appears similar to 2019 as well. Prominent hypertrophic changes at the medial aspect of the trapezium appears stable. Slight progressive subchondral cystic changes at base of 1st metacarpal Also note accessory ossicle which is corticated at the radial margin of this arthritic joint which also adds a to the likely palpable prominence here. RIGHT WRIST: Again the severe arthritic changes at 1st carpal-metacarpal joint. There may be some additional subchondral cystic changes about this joint versus 2019 but otherwise findings overall since similar stable but no acute fracture. The remaining carpals appear stable and intact as well compared to 2019. Navicular intact with no acute findings but small subchondral cyst at lunate, ulnar aspect measuring 3 mm size faintly seen. The radiocarpal relationships and joint appear intact. No acute fracture or findings or displacement at wrist IMPRESSION: 1. No acute fracture at the hand or wrist 2... severe arthritic changes 1st metacarpal-carpal joint again observed-similar to 2019 right hand study, with no discrete acute fracture here . Marked joint space narrowing, degenerative sclerosis, prominent hypertrophic changes about this joint again noted . Stable mild lateral subluxation base of 1st metacarpal again noted; . Only suggestion of perhaps slight progressive tiny subchondral degenerative cystic changes about this joint Dictated by: Mark Haley MD 10/10/2020 21:11 Mark Haley MD in [place] 10/10/2020 21:11
--- NOTE | 2020-10-10 18:55 | XR_ITS ---
PROCEDURE: XR FOREARM RT 2V XR ELBOW RT MIN 3V Referring Doctor: Reta Curtis Patient Age:59Y CLINICAL INDICATION: FALL fall on ice Right forearm pain right elbow pain COMPARISON: CR XR ELBOW RT MIN 3V from 10/10/2020 TECHNIQUE: Right forearm: Two view AP and lateral Right elbow: 3 View AP, Oblique, Lateral FINDINGS: RIGHT ELBOW: No fracture or dislocation. No joint effusion. No lytic or blastic change. There is normal mineralization. The joint spaces are well-preserved with normal osseous relationships but no significant degenerative/arthritic changes. No erosive changes evident.. Radial head intact. Generous girth upper arm RIGHT FOREARM.: The forearm appear stable and intact with no significant new findings versus 2017. Radius and ulna intact. Unremarkable bones well mineralized Again the severe arthritic changes 1st carpal-metacarpal joint observed with no definitive acute fracture in this region on these views either. IMPRESSION: Right elbow intact no fracture. Right forearm intact. No fracture. . No change since 2017 right forearm study Note: On right forearm study again note the arthritic changes 1st carpal-metacarpal joint. No discrete acute fracture but certainly trauma at this area would aggravate the severe arthritis and would be difficult to exclude bone contusion or microfractures in this region on on plain film. Dictated by: Mark Haley MD 10/10/2020 21:19 Mark Haley MD in [place] 10/10/2020 21:19
[2020-10-10 19:10] VITALS: BP 132/76; PULSE 83; RESP 18; TEMP 36.8; O2SAT 97; BMI 29.2
--- NOTE | 2020-10-10 19:29 | HMH.EDUTC ---
[facility] [place] Clinical Impression: Fall Qualifiers: Encounter type: initial encounter Qualified Code(s): W19.XXXA - Unspecified fall, initial encounter Disposition: Home, Self-Care Condition on Discharge: Good Instructions: How to Use a Sling, How To Perform RICE (Rest, Ice, Compress, Elevate), How to Apply an Nicholas Wrap Additional Instructions: *RICE, Rest the extremity, Ice 15-20 minutes 3-4 times daily, Compress- wear the nicholas wrap as discussed as much as possible to help reduce swelling and pain, Elevate the extremity when at rest *Nicholas wrap/sling is for support and help control swelling, use it except in the shower. Be sure that is not to tight but not to loose either *Elevate when resting *Ibuprofen every 6-8 hours as needed for pain an inflammation. If need something more can take Tylenol in between doses of Ibuprofen to help Immediately follow up with your family doctor for new or worsening of symptoms, or no noticeable improvement over the next 3-5 days Follow up with your Family Doctor if no improvement or any worsening of symptoms Return if needed May call back tomorrow for the official reading of your xrays and further instructions Straight to ER any life threatening symptoms Referrals: Mari Allen PA [Primary Care Provider] - As needed Time of Disposition: 19:42 Medical Decision Making - Miguel Inquiry Pt receiving controlled substance: No Miguel was queried for this patient: No Vital Signs: 10/10/20 19:10 10/10/20 19:59 Temperature 98.3 F 98 F Temperature Source Oral Oral Pulse Rate 83 Pulse Rate [Right Brachial] 83 Respiratory Rate 18 18 Blood Pressure 132/76 Blood Pressure [Right Arm] 132/76 Blood Pressure Mean [Right Arm] 94 Blood Pressure Source [Right Arm] Automatic Cuff Blood Pressure Position [Right Arm] Sitting 02 Sat by Pulse Oximetry 97 Oxygen Delivery Method Room Air Orders (Tests/Meds): ORDERS Category Date Time Status XR elbow RT min 3V Stat Exams 10/10/20 18:55 Taken XR forearm RT 2V Stat Exams 10/10/20 18:55 Taken XR hand RT min 3V Stat Exams 10/10/20 18:54 Taken XR wrist RT min 3V Stat Exams 10/10/20 18:54 Taken - Radiology Data #1 Image(s): Hand Image Reviewed: Yes I reviewed the patient's radiology image w/the ED provider Preliminary Findings: No Fracture Seen Chronic changes no acute fracture #2 Image(s): Wrist Image Reviewed: Yes I reviewed the patient's radiology image Preliminary Findings: No Fracture Seen #3 Image(s): Elbow, Forearm Image Reviewed: Yes I reviewed the patient's radiology image w/the ED provider Preliminary Findings: No Fracture Seen [facility] [place] - General Stated complaint: AO [id number] fell injured r arm Time Seen by Provider: 10/10/20 19:29 Mode of Arrival: Ambulatory Source of Information: Patient Limitations: No Limitations Description of Symptoms (Recalled from Triage Doc. by RN): INJURY TO RIGHT ARM AFTER FALLING ON ICE TODAY. C/O PAIN FROM ELBOW DOWN TO HAND HEENT Symptoms (Recalled from RN notes): No Resp Symptoms (Recalled from RN notes): No Skin Symptoms (Recalled from RN notes): No MS Symptoms (Recalled from RN notes): Yes Functional Status (Recalled from RN notes): WNL - History of Present Illness Provider Complaint: Patient state that she slipped and fell on ice last night and fell and landed on her right elbow, forearm and wrist and ever since she has been having pain in her right hand, wrist, forearm and elbow area States that her thumb area does not look right and has pain in her elbow area when she touches it - Related Data Home Medications Medication Instructions Recorded Confirmed Alendronate Sodium [Fosamax 70mg 70 mg PO QWEEK 04/10/18 06/08/20 Tablet] Amlodipine Besylate [Norvasc 5mg 5 mg PO DAILY 04/10/18 06/08/20 tablet] Atorvastatin Calcium [Lipitor 10mg 10 mg PO QHS 04/10/18 06/08/20 Tab] Previous Rx's Medication Instructions Recorded di
[2020-10-10 19:59] VITALS: BP 132/76; PULSE 83; RESP 18; TEMP 36.6; O2SAT 100
== END 2020-10-10 19:59 | disposition home or self-care (01) ==
PROVIDERS: Emergency Provider Nurse Practitioner; PCP Physician Assistant
DX: S50.11XA Contusion of right forearm, initial encounter (principal); S60.221A Contusion of right hand, initial encounter; W00.0XXA Fall on same level due to ice and snow, initial encounter; Y92.89 Other specified places as the place of occurrence of the external cause; E11.9 Type 2 diabetes mellitus without complications; I10 Essential (primary) hypertension
CPT/HCPCS: 29105; 73080; 73090; 73110; 73130; 99202; G0463

== ENCOUNTER 2020-12-19 19:50 | Emergency (ER) | payer BC, SELFPAY ==
[2020-12-19 20:03] VITALS: BP 127/76; PULSE 76; RESP 21; TEMP 36.6; O2SAT 99; BMI 29.2
--- NOTE | 2020-12-19 20:11 | HMH.EDUTC ---
[facility] – [place] Dis[place] Clinical Impression: Sinusitis Qualifiers: Sinusitis location: unspecified location Chronicity: unspecified Qualified Code(s): J32.9 - Chronic sinusitis, unspecified Disposition: Home, Self-Care Condition on Discharge: Good Instructions: Sinusitis, DI for Sinusitis, Azithromycin Additional Instructions: *Monitor Temp, Over the counter Motrin or Tylenol as directed/as needed Tylenol every 4 hours and Motrin every 6 hours (as long as your family doctor has told you that you can take it) for fever or pain. and straight to ER if unable to lower temp less than 101.0 after medication given *Warm fluids like tea with honey may help to soothe the throat and help with sinus congestion *Sleep elevated *Humidifier/Vaporizer *Take medication as prescribed Follow up if needed Follow up IMMEDIATELY for new or worsening symptoms or no Noticeable improvement over the next 48-72 hours. 911 for difficulty breathing or swallowing Prescriptions: Azithromycin [Z-Sanya 250mg Tab] 250 mg PO DIRECTED #6 tab Transmission Status: Pending to [facility] Referrals: Mari Allen PA [Primary Care Provider] - As needed Time of Disposition: 20:16 Medical Decision Making - Miguel Inquiry Pt receiving controlled substance: No Miguel was queried for this patient: No Vital Signs: 12/19/20 20:03 Temperature 97.9 F Temperature Source Oral Pulse Rate [Right Brachial] 76 Respiratory Rate 21 Blood Pressure [Right Arm] 127/76 Blood Pressure Mean [Right Arm] 93 Blood Pressure Source [Right Arm] Automatic Cuff Blood Pressure Position [Right Arm] Sitting 02 Sat by Pulse Oximetry 99 Oxygen Delivery Method Room Air Medical Decision Narrative: Patient state that she has taken azithromycin multiple times in the past without reactions or complications [facility] [place] HPI - General Stated complaint: possible sinus infection Time Seen by Provider: 12/19/20 20:11 Mode of Arrival: Ambulatory Source of Information: Patient Limitations: No Limitations Description of Symptoms (Recalled from Triage Doc. by RN): PATIENT C/O SINUS INFECTION X 2 WEEKS HEENT Symptoms (Recalled from RN notes): Yes Resp Symptoms (Recalled from RN notes): No Skin Symptoms (Recalled from RN notes): No MS Symptoms (Recalled from RN notes): No Functional Status (Recalled from RN notes): WNL - History of Present Illness Provider Complaint: Patient state that she gets sinus infection about this time every year State that for the last 2 weeks she has been having sinus pain and pressure that has continued to get worse States that she can feel the pressure under her eyes and even hurts in her upper teeth like she has had before with sinus infections - Related Data Home Medications Medication Instructions Recorded Confirmed Meloxicam 15 mg PO DAILY 12/19/20 12/19/20 Metformin HCl [Glucophage] 1,000 mg PO BID 12/19/20 12/19/20 Sertraline HCl [Zoloft] 100 mg PO DAILY 12/19/20 12/19/20 Sitagliptin Phosphate [Januvia 100 mg PO DAILY 12/19/20 12/19/20 100mg tablet] atenoloL [Atenolol 25mg Tab] 25 mg PO DAILY 12/19/20 12/19/20 glipiZIDE [Glipizide ER] 15 mg PO DAILY 12/19/20 12/19/20 Previous Rx's Medication Instructions Recorded Azithromycin [Z-Sanya 250mg Tab] 250 mg PO DIRECTED #6 tab 12/19/20 Allergies Allergy/AdvReac Type Severity Reaction Status Date / Time aspirin [ASPIRIN] Allergy Unknown EXTREME Verified 11/16/20 09:49 BRUISING lisinopril AdvReac Intermediate Verified 11/16/20 09:49 rosuvastatin [From Crestor] AdvReac Intermediate Verified 11/16/20 09:49 - Worker's Comp Is this a Worker's Comp case?: No H History - Hepatitis A Screen Drug use history?: No High risk sexual behaviors?: No History of sexually transmitted infection?: No Currently employed?: No Childcare worker?: No Do you have indoor plumbing?: Yes Do you have electricity?: Yes Attestation statement:: This patient has been screened for Hep
[2020-12-19 20:21] VITALS: BP 127/76; PULSE 76; RESP 21; TEMP 36.6; O2SAT 99
== END 2020-12-19 20:24 | disposition home or self-care (01) ==
PROVIDERS: Emergency Provider Nurse Practitioner; PCP Physician Assistant
DX: J32.9 Chronic sinusitis, unspecified (principal); E11.9 Type 2 diabetes mellitus without complications; I10 Essential (primary) hypertension; Z79.899 Other long term (current) drug therapy
CPT/HCPCS: 99202; G0463

== ENCOUNTER → 2020-12-31 11:05 | Outpatient (CLI) | payer BC, SELFPAY | PROVIDERS: PCP Physician Assistant; Visit Provider Plastic Surgery | DX: Z01.812 Encounter for preprocedural laboratory examination (principal); Z11.52 Encounter for screening for COVID-19; M18.9 Osteoarthritis of first carpometacarpal joint, unspecified | CPT/HCPCS: U0003 ==

== ENCOUNTER 2021-01-01 10:00 | Outpatient (RCR) | payer BC, SELFPAY ==
--- NOTE | 2020-09-23 13:26 | HMH.PTOPWND ---
Rehab Outpt Wound Evaluation Rehab OP Wound Evaluation Start: 09/23/20 13:21 Freq: Status: Active Protocol: Document 09/23/20 13:21 CHRISTIAN (Rec: 09/23/20 13:26 PHORASHID [id number]) Electronically Signed By Luke Mobley, PT 09/23/20 13:21 Subjective/History History History Pt is 59 yowf who presents with continued chronic edema of the L LE, worse now x 2-3 wks per her report. She reports hx of pain intermittently in the L LE with sensations of burning in the lower leg. She has a lymphedema pump at home and wears compression regularly per her report. Subjective Subjective Currently 4/10, at worst 8/10. Pitting felice of the L foot 1+ at this time. Lymphedema Eval Classification of Lymphedema Secondary Lymphedema Yes Stemmer's sign Stemmer's Sign no Stage of Lymphedema Lymphedema stages Stage I (Pitting edema, reduces w/ elevation, no fibrosis) Skin Changes Dry Skin Yes Other Changes Yes Pain Scale Pain Scale (0-10) 8 Affected Extremities Areas Affected by Lymphedema/Edema Right Lower Extremity,Left Lower Extremity Manual Lymphatic Drainage Treatment Area MLD Treatment Area Right Lower Extremity,Left Lower Extremity Wound Problems/Impairments Impairments Problems/Impairmments Impaired Recreational Activities,Increased Edema, Lymphedema Present,Subjective C/O Pain,Impaired Self Care/ Self Management Prognosis Rehab Potential Good Clinical Impression Consistent with Diagnosis Yes Short Term Goals Number of Weeks 4 Decrease Edema Yes Decrease Subjective C/O Pain Yes: 10/28 Patient to Understand Lymphedema Yes Treatment and Exercises Decrease Girth Measurments by (cm) Yes: by 10 cm Residential Goals Number of Weeks 8 Decrease Lymphedema Yes Decrease Subjective C/O Pain Yes: 08/30 Patient to be Ind w/ HEP Yes Patient to be Ind w/ [place] Yes Compression Garments Patient to Adhere Lymphedema Precautions Yes Decrease Girth Measurments by (cm) Yes: by 20 cm Outpatient Therapy Plan of Care Treatment Plan May Include Therapeutic Exercise Incl
--- NOTE | 2020-10-22 10:58 | HMH.RHREAS ---
Rehab Reassessment Rehab OP Re-assessment Start: 10/22/20 10:54 Freq: Status: Active Protocol: Document 10/22/20 10:55 CHRISTIAN (Rec: 10/22/20 10:58 CHRISTIAN [id number]) Electronically Signed By Luke Mobley, PT 10/22/20 10:55 Rehab Re-assessment Subjective Subjective Pt reports, I fell a week or so ago on some ice and I think that has set me back because I can't do any of my stuff at home I'm supposed to. Objective Objective Notes Circumferential measurements: L LE is +7.7 cm total since initial eval. 2+ pitting edema noted on dorsum of L foot this date. Assessment Progress Assessment Progressing as Expected Assessment Notes Pt with increased edema and sensation of discomfort or heaviness this date. Patient goals met none Goals Not Met ST,2,3,4 LT,2,3,4,5 ,6 Revised Goals none Plan Plan Continue per initial POC. Frequency of Therapy 2 x/wk Duration of therapy 8 wks Time and Billing Re-Eval Time 15 Re-Eval Billing Units 1 PHYSICIAN CERTIFICATION: I certify the specified therapy services for Afshan Ram are required, authorized, and reviewed every 30 days.
--- NOTE | 2020-11-25 11:45 | HMH.RHREAS ---
Rehab Reassessment Rehab OP Re-assessment Start: 10/22/20 10:54 Freq: Status: Active Protocol: Document 11/25/20 11:42 CHRISTIAN (Rec: 11/25/20 11:45 CHRISTIAN [id number]) Electronically Signed By Luke Mobley, PT 11/25/20 11:42 Rehab Re-assessment Subjective Subjective Pt reports increased pain in her L gonsales today, but states, The car door hit me the other day and I thought it broke my leg. Objective Objective Notes Circumferential measurements: L LE total 282.5 cm which is - 0.9 cm since last re- evaluation. Assessment Progress Assessment Progressing as Expected Assessment Notes Pt reports overall pain has significantly decreased in the L LE. She has decreased fibrotic edema, but edema does continue to fluctuate. Patient goals met ST,2,3,4 Goals Not Met LT,2,3,4,5,6 Revised Goals none Plan Plan Continue per initial POC. Frequency of Therapy 2 x/wk Duration of therapy 8 wks Time and Billing Re-Eval Time 15 Re-Eval Billing Units 1 PHYSICIAN CERTIFICATION: I certify the specified therapy services for Afshan Ram are required, authorized, and reviewed every 30 days.
== END 2021-01-01 10:05 | disposition home or self-care (01) ==
LOC: PT 10:00
PROVIDERS: PCP Physician Assistant; Visit Provider Physician Assistant
DX: I89.0 Lymphedema, not elsewhere classified (principal)
CPT/HCPCS: 97140; 97162; 97164

== ENCOUNTER → 2021-03-18 13:54 | Outpatient (CLI) | payer BC, SELFPAY ==
--- NOTE | 2021-03-18 13:55 | US_ITS ---
PROCEDURE: US EXTREMITY RT LIMITED CLINICAL INDICATION: nodule right ant thigh; h/o melanoma COMPARISON: CR RIBSLT XR ribs LT 2V from 12/06/2017 FINDINGS: Targeted ultrasound performed of the region of the palpable abnormality in the right anterior mid thigh. No cystic or discrete solid mass evident. Lipomata tissue noted at this region. IMPRESSION: No discrete cystic or solid nodule apparent. If there is indeed a palpable nodule at this region then MRI without and with contrast may provide further evaluation. Dictated by: Qamar Dunne MD 03/18/2021 16:57 Qamar Dunne MD in [place] 03/18/2021 16:57
== END ==
PROVIDERS: PCP Physician Assistant; Visit Provider Physician Assistant
DX: R22.41 Localized swelling, mass and lump, right lower limb (principal)
CPT/HCPCS: 76882

== ENCOUNTER → 2021-04-09 11:25 | Outpatient (CLI) | payer BC, SELFPAY ==
[2021-04-09 11:50] LABS: Basophils # 0.1 K/mm3 (0-0.2); Basophils % 0.9 % (0.1-2.0); Eosinophils # 0.1 K/mm3 (0.0-0.4); Hematocrit 43.4 % (37.0-47.0); Hemoglobin 14.3 g/dL (12.2-16.2); Lymphocytes # 1.8 K/mm3 (0.7-4.5); Lymphocytes % 33.3 % (10-50); Mean Corpuscular Hemoglobin 30.4 pg (27.0-31.2); Mean Corpuscular Volume 92.1 fl (81-99); Mean Platelet Volume 10.7 fl (7.4-10.4); Monocytes # 0.2 K/mm3 (0.1-1.0); Monocytes % 3.8 % (1.7-9.3); Neutrophils # 3.2 K/mm3 (1.8-7.8); Neutrophils % 60.1 % (37.0-80.0); Platelet Count 165 K/mm3 (142-424); Red Blood Count 4.72 M/mm3 (4.20-5.40); Red Cell Distribution Width 13.3 % (11.5-17.5); White Blood Count 5.3 K/mm3 (4.8-10.8)
[2021-04-09 11:57] LABS: Hemoglobin A1C 10.7 % (4.0-6.0)
[2021-04-09 12:21] LABS: Alanine Aminotransferase 19 U/L (12-78); Albumin/Globulin Ratio 1.5 (1.1-1.8); Alkaline Phosphatase 115 U/L (38-126); Anion Gap 12.6 mEq/L (5-15); Aspartate Amino Transferase 20 U/L (14-36); Bilirubin,Total 0.5 mg/dl (0.2-1.3); Blood Urea Nitrogen 12 mg/dl (7-17); Calcium 9.3 mg/dl (8.4-10.2); Carbon Dioxide 26 mmol/L (22.0-30.0); Chloride 102 mmol/L (98-107); Chol/HDL Ratio 3.5 (1-3.5); Cholesterol 222 mg/dl (140-200); Estimated Glomerular Filt Rate 103 ml/min (>60); GFR (African American) 124 ML/MIN (>60); Globulin 2.6 g/dL (1.3-3.2); Glucose 311 mg/dl (74-100); HDL Cholesterol 63 mg/dl (40-60); Potassium 4.6 mmoL/L (3.5-5.1); Sodium 136 mmol/L (136-145); Total Protein,Serum 6.6 g/dl (6.3-8.2); Triglycerides 128 mg/dl (30-150); VLDL Cholesterol 26 mg/dL (0-40)
[2021-04-09 12:31] LABS: Direct LDL Cholesterol 131.33 mg/dL (100-129)
[2021-04-09 12:37] LABS: 25-OH Vitamin D, Total 25.7 ng/mL (30-100)
[2021-04-09 12:51] LABS: Thyroid Stimulating Hormone 0.65 uIU/mL (0.465-4.68)
[2021-04-10 08:22] LABS: HIV Screen 4th Generation wRfx Non Reactive (Non Reactive)
[2021-04-10 11:54] LABS: Hep A Ab, IgM Negative (Negative); Hepatitis B Core Antibody IgM Negative (Negative); Hepatitis B Surface Antigen Negative (Negative); Hepatitis C Antibody <0.1 s/co ratio (0.0-0.9)
== END ==
PROVIDERS: Visit Provider Physician Assistant
DX: I10 Essential (primary) hypertension (principal); F32.9 Major depressive disorder, single episode, unspecified; F41.9 Anxiety disorder, unspecified; E11.9 Type 2 diabetes mellitus without complications; E55.9 Vitamin D deficiency, unspecified; E78.49 Other hyperlipidemia; Z79.84 Long term (current) use of oral hypoglycemic drugs
CPT/HCPCS: 36415; 80053; 80061; 80074; 82043; 82306; 83036; 84443; 85025; 86703; G0432

== ENCOUNTER → 2021-04-15 14:11 | Outpatient (CLI) | payer BC, SELFPAY ==
--- NOTE | 2021-04-15 14:11 | MR_ITS ---
PROCEDURE: MR FEMUR RT WO/W CON CLINICAL INDICATION: nodule right ant thigh area COMPARISON: US US EXTREMITY RT LIMITED from 03/18/2021 TECHNIQUE: Routine multiplanar multi echo sequences are performed without and gadolinium enhancement. FINDINGS: A marker is placed on the skin in the area palpable concern/pain. There are no masses within the subcutaneous tissues or muscles deep to that region. No abnormal fluid collection or soft tissue mass. IMPRESSION: Unremarkable MRI of the right femur. No soft tissue mass or abnormal fluid collection evident in the area clinical concern Dictated by: Qamar Dunne MD 04/16/2021 12:44 Qamar Dunne MD in [place] 04/16/2021 12:44
== END ==
PROVIDERS: PCP Physician Assistant; Visit Provider Physician Assistant
DX: R22.41 Localized swelling, mass and lump, right lower limb (principal)
CPT/HCPCS: 73720; A9576

== ENCOUNTER → 2021-04-29 10:19 | Outpatient (CLI) | payer BC, SELFPAY ==
--- NOTE | 2021-04-29 10:20 | MM_ITS ---
PROCEDURE: MM DIG SCREENING MAMM BI W/CAD Digital Breast Tomosynthesis Included CLINICAL INDICATION: Breast cancer screening by mammogram COMPARISON: MG DMSB DIG MAMM-SCREEN LUCIANO from 03/20/2015 MG SCBI MM Dig screening mamm BI w/CAD from 11/09/2017 MG MM DIG SCREENING MAMM BI W/CAD from 06/12/2019 US BREAST LT COMPLETE from 07/15/2019 MG MM DIG MAMM DX UNILAT LT CAD from 07/15/2019 MG MM SURGICAL SPECIMEN LT from 09/18/2019 MG MM STEREOTACTIC LOC LT from 09/18/2019 MG MM CLIP PLACEMENT LT from 09/18/2019 TECHNIQUE: Standard CC and MLO images and 3D Tomosynthesis was obtained. R2 CAD reviewed. FINDINGS: There are scattered areas of fibroglandular density. Benign-appearing nodules are once again noted involving the left breast not significantly changed. 3 biopsy clips are present on the left. Previously noted suspicious calcifications have been removed on the left. No suspicious appearing mass, malignant-appearing microcalcification, architectural distortion, or skin thickening. IMPRESSION: Benign findings. No evidence of malignancy BI-RAD Category: 2 Benign Finding FOLLOW-UP: 1 YR 1 Year Follow-up (A letter has been sent to the patient regarding results of the study.) Dictated by: Qamar Dunne MD 05/13/2021 09:47 Qamar Dunne MD in [place] 05/13/2021 09:47
== END ==
PROVIDERS: PCP Physician Assistant; Visit Provider Physician Assistant
DX: Z12.31 Encounter for screening mammogram for malignant neoplasm of breast (principal)
CPT/HCPCS: 77063; 77067

== ENCOUNTER 2021-05-05 10:00 | Outpatient (RCR) | payer BC, SELFPAY | END 2021-05-05 10:05 | disposition home or self-care (01) | LOC: OT 10:00 | PROVIDERS: PCP Physician Assistant; Visit Provider Plastic Surgery | DX: M79.641 Pain in right hand (principal) | CPT/HCPCS: 97010; 97035; 97110; 97140; 97164; 97166 ==

== ENCOUNTER 2021-07-06 09:51 | Emergency (ER) | payer BC, SELFPAY ==
[2021-07-06 10:55] VITALS: BP 145/83; PULSE 86; RESP 14; TEMP 36.8; O2SAT 97; BMI 29.2
--- NOTE | 2021-07-06 11:03 | HMH.EDUTC ---
[facility] [place] Clinical Impression: Bronchitis Sinusitis Qualifiers: Sinusitis location: unspecified location Chronicity: acute Recurrence: non-recurrent Qualified Code(s): J01.90 - Acute sinusitis, unspecified Pharyngitis Qualifiers: Pharyngitis/tonsillitis etiology: other specified organisms Qualified Code(s): J02.8 - Acute pharyngitis due to other specified organisms Disposition: Home, Self-Care Condition on Discharge: Good Instructions: DI for Pharyngitis/Tonsillopharyngitis -- Adult, DI for Sinusitis, DI for Acute Bronchitis Additional Instructions: Drink plenty of fluids. Take tylenol or ibuprofen for pain or fever. Take the medications as directed. Follow up with your regular doctor. GO TO THE ER FOR ANY WORSENING SYMPTOMS Prescriptions: Benzonatate [Benzonatate 100mg cap] 100 mg PO TIDP PRN #30 cap PRN Reason: Cough Transmission Status: Received by [facility] guaiFENesin [Mucinex 600mg tablet] 1 - 2 tab PO BIDP PRN #30 tab PRN Reason: Congestion Transmission Status: Received by [facility] Azithromycin [Z-Sanya 250mg Tab*] 250 mg PO UD DOSE PK #6 tab Transmission Status: Received by [facility] Referrals: Mari Allen PA [Primary Care Provider] - Forms: Work/School Release Time of Disposition: 11:11 Medical Decision Making - Medical Records Medical records reviewed: No: I reviewed the patient's medical records. - Miguel Inquiry Pt receiving controlled substance: No Vital Signs: 07/06/21 10:55 07/06/21 11:18 Temperature 98.2 F 98.2 F Temperature Source Oral Pulse Rate 86 Pulse Rate [Left] 86 Respiratory Rate 14 14 Blood Pressure 145/83 H Blood Pressure [Right Arm] 145/83 H Blood Pressure Mean [Right Arm] 103 02 Sat by Pulse Oximetry 97 - Lab Data Lab results reviewed: Yes: I reviewed the patient's lab results. Lab Results 07/06/21 11:11: Strep Scn Rapid Clinic Positive A [facility] [place] H[place] - General Stated complaint: sinus pressure, head congestion Time Seen by Provider: 07/06/21 11:03 Mode of Arrival: Ambulatory Source of Information: Patient Limitations: No Limitations Description of Symptoms (Recalled from Triage Doc. by RN): pt c/o pain in her teeth, facial pain/pressure and nasal drainage. HEENT Symptoms (Recalled from RN notes): Yes (sinus pressure and drainage) Resp Symptoms (Recalled from RN notes): No Skin Symptoms (Recalled from RN notes): No MS Symptoms (Recalled from RN notes): No Functional Status (Recalled from RN notes): na - History of Present Illness Provider Complaint: She states that for the past 3 days she has had sinus drainage, sinus congestion, bilateral ear pain, and she has had a poor appetite. She has been exposed to strep throat. She refused a covid test today. - Related Data Home Medications Medication Instructions Recorded Confirmed Sitagliptin Phosphate [Januvia 100 mg PO DAILY 12/19/20 04/13/21 100mg tablet] Previous Rx's Medication Instructions Recorded canagliflozin 100 mg tablet 100 mg PO DAILY #30 tab 04/21/21 losartan 25 mg tablet 25 mg PO DAILY #30 tab 04/21/21 rosuvastatin 20 mg tablet 20 mg PO QHS #30 tab 04/21/21 atenolol 25 mg tablet See Rx Instructions .ROUTE 05/12/21 .COMPLEX #90 tab glipizide 10 mg tablet, extended See Rx Instructions .ROUTE 05/12/21 release 24 hr .COMPLEX #90 tab meloxicam 15 mg tablet See Rx Instructions .ROUTE 05/12/21 .COMPLEX #90 tab metformin 1,000 mg tablet See Rx Instructions .ROUTE 05/12/21 .COMPLEX #180 tab sertraline 100 mg tablet See Rx Instructions .ROUTE 05/12/21 .COMPLEX #90 tab cholecalciferol (vitamin D3) 1,250 See Rx Instructions .ROUTE 06/01/21 mcg (50,000 unit) capsule .COMPLEX #12 cap Azithromycin [Z-Sanya 250mg Tab*] 250 mg PO UD DOSE PK #6 tab 07/06/21 Benzonatate [Benzonatate 100mg 100 mg PO TIDP PRN #30 cap 07/06/21 cap] guaiFENesin [Mucinex 600mg tablet] 1 - 2 tab PO BIDP PRN #30 tab 07/06/21 Allerg
[2021-07-06 11:17] LABS: UTC Strep Screen (Rapid) Positive (Negative)
[2021-07-06 11:18] VITALS: BP 145/83; PULSE 86; RESP 14; TEMP 36.8
== END 2021-07-06 11:32 | disposition home or self-care (01) ==
PROVIDERS: Emergency Provider Nurse Practitioner Family; PCP Physician Assistant
DX: J20.9 Acute bronchitis, unspecified (principal); J02.8 Acute pharyngitis due to other specified organisms; J01.90 Acute sinusitis, unspecified; E11.9 Type 2 diabetes mellitus without complications; I10 Essential (primary) hypertension
CPT/HCPCS: 87880; 99202; G0463

== ENCOUNTER 2021-08-16 16:54 | Emergency (ER) | payer BC, SELFPAY ==
[2021-08-16 18:20] VITALS: BP 155/90; PULSE 84; RESP 20; TEMP 36.9; O2SAT 98; BMI 25.5
[2021-08-16 18:30] LABS: Apearance,Urine Clear (Clear); Bilirubin,Urine Negative (Negative); Blood, Urine Trace (Negative); Color,Urine Yellow (Yellow); Glucose,Urine (UA) 1000 (Negative); Ketones,Urine Negative (Negative); Protein,Urine Negative (Negative); UTC Leukocyte Esterase,Urine Negative (Negative); UTC Nitrate,Urine Negative (Negative); Urobilinogen,Urine 0.2 EU/dl (0.2)
--- NOTE | 2021-08-16 19:15 | HMH.EDUTC ---
[facility] [place] [facility] [place] Clinical Impression: UTI (urinary tract infection) Qualifiers: Urinary tract infection type: site unspecified Hematuria presence: with hematuria Qualified Code(s): N39.0 - Urinary tract infection, site not specified; R31.9 - Hematuria, unspecified Disposition: Home, Self-Care Condition on Discharge: Good Instructions: Urinary Tract Infection, DI for Urinary Tract Infection (UTI), DI for Vaginal Yeast Infection Additional Instructions: *Increase fluids. Water not Soda or Tea *Start antibiotic immediately and be sure to take as ordered for the FULL length of time although you should start to see improvement over the next 48 hours *Be SURE to follow up anytime for new or worsening symptoms with your family doctor. AND in 48 hours for urine culture results with your family doctor, if you do not have a doctor then you may call back to the [facility] for urine culture results and further treatment. We do recommend that you choose and establish care with a Primary Care Physician. AND follow up with them in 10-14 days to repeat UA to ensure infection is resolved and blood no longer present *Be sure to let your PCP know that we sent urine cultures from the [facility] so they can follow up to ensure that you area the on the correct antibiotic Call your doctor office and make appointment for 48 hours (2 days from today) to follow up and get the results of your urine culture and further treatment Prescriptions: cephALEXin [cephALEXin 500mg capsule*] 500 mg PO BID 5 Days #10 cap Transmission Status: Pending to [facility] Fluconazole [Diflucan 150mg tab] 150 mg PO DIRECTED #2 tab Transmission Status: Pending to [facility] Referrals: Mari Allen PA [Primary Care Provider] - As needed Time of Disposition: 19:20 Medical Decision Making - Miguel Inquiry Pt receiving controlled substance: No Miguel was queried for this patient: No Vital Signs: 08/16/21 18:20 Temperature 98.4 F Temperature Source Oral Pulse Rate [Right Brachial] 84 Respiratory Rate 20 Blood Pressure [Right Arm] 155/90 H Blood Pressure Mean [Right Arm] 111 Blood Pressure Source [Right Arm] Automatic Cuff Blood Pressure Position [Right Arm] Sitting 02 Sat by Pulse Oximetry 98 Oxygen Delivery Method Room Air - Lab Data Lab results reviewed: Yes: I reviewed the patient's lab results. Lab Results 08/16/21 18:29: Urine Color Yellow, Urine Appearance Clear, Urine pH 5.0, Ur Specific [place] 1.020, Urine Protein Negative, Urine Glucose (UA) 1000, Urine Ketones Negative, Urine Blood Trace, Urine Nitrate Negative, Urine Bilirubin Negative, Urine Urobilinogen 0.2, Ur Leukocyte Esterase Negative Medical Decision Narrative: Patient states that she has take cephalexin and diflucan in the past without reactions or complications [facility] [place] [facility] [place] - General Stated complaint: UTI Time Seen by Provider: 08/16/21 19:15 Mode of Arrival: Ambulatory Source of Information: Patient Limitations: No Limitations Description of Symptoms (Recalled from Triage Doc. by RN): PATIENT C/O FREQUENT URINATION WITH BURNING AND BLOOD WHEN WIPING FOR SEVERAL DAYS HEENT Symptoms (Recalled from RN notes): No Resp Symptoms (Recalled from RN notes): No Skin Symptoms (Recalled from RN notes): No MS Symptoms (Recalled from RN notes): No Functional Status (Recalled from RN notes): WNL - History of Present Illness Provider Complaint: Patient states that she has been having some burning with urination, itching and discharge States that she also noticed small amount of blood on tissue States that she feels like she has a UTI - Related Data Home Medications Medication Instructions Recorded Confirmed Sitagliptin Phosphate [Januvia 100 mg PO DAILY 12/19/20 04/13/21 100mg tablet] Previous Rx's Medication Instructions Recorded canagliflozin 100 mg tablet 100 mg PO DAILY #30 tab 04/21/21 losartan 25 mg tablet 25 mg PO DAILY #30 tab 04/21/21 rosuvastatin 20 mg
[2021-08-16 19:30] VITALS: BP 155/90; PULSE 84; RESP 20; TEMP 36.9; O2SAT 98
== END 2021-08-16 19:35 | disposition home or self-care (01) ==
PROVIDERS: Emergency Provider Nurse Practitioner; PCP Physician Assistant
DX: N30.01 Acute cystitis with hematuria (principal); E11.9 Type 2 diabetes mellitus without complications; I10 Essential (primary) hypertension; Z79.899 Other long term (current) drug therapy
CPT/HCPCS: 81003; 99202; G0463

== ENCOUNTER → 2021-08-25 11:31 | Outpatient (CLI) | payer BC, SELFPAY ==
--- NOTE | 2021-08-25 11:35 | XR_ITS ---
FINAL REPORT CLINICAL HISTORY: Lt hip pain for 3-4 months Nki FINDINGS: LEFT HIP FINDINGS: 2 views show no evidence of an acute, displaced fracture or dislocation. The joint spaces appear normal. Soft tissues are unremarkable. IMPRESSION: No acute bony abnormality. Reviewed, Interpreted and Dictated by Tye Cisneros MD Transcribed by Hyacinth Serrano Authenticated by Tye Cisneros MD on 08/25/2021 01:08:18 PM [facility]
== END ==
PROVIDERS: PCP Physician Assistant; Visit Provider Nurse Practitioner Family
DX: M25.552 Pain in left hip (principal)
CPT/HCPCS: 73502

== ENCOUNTER → 2021-09-07 13:32 | Outpatient (CLI) | payer BC, SELFPAY | PROVIDERS: Visit Provider Nurse Practitioner | DX: U07.1 COVID-19 (principal) | CPT/HCPCS: C9803; U0003; U0005 ==

== ENCOUNTER → 2021-12-24 14:23 | Outpatient (CLI) | payer BC, SELFPAY ==
--- NOTE | 2021-12-24 14:34 | XR_ITS ---
FINAL REPORT CLINICAL HISTORY: LT LOWER leg pain FINDINGS: Two views of the left tibia-fibula demonstrate no acute fracture or dislocation. The joint spaces appear normal. The visualized bony structures are well aligned. No soft tissue abnormality is seen. IMPRESSION: No acute process. Reviewed, Interpreted and Dictated by Tye Cisneros MD Transcribed by Clay Hickman Authenticated by Tye Cisneros MD on 12/24/2021 04:03:[address] [facility]
--- NOTE | 2021-12-24 14:34 | XR_ITS ---
FINAL REPORT CLINICAL HISTORY: LT hip pain FINDINGS: 2 views of the left hip and an AP pelvis were obtained. There is no acute fracture or dislocation. The joint spaces are intact. There are no soft tissue abnormalities. IMPRESSION: No acute process. Reviewed, Interpreted and Dictated by Tye Cisenros MD Transcribed by Clay Hickman Authenticated by Tye Cisneros MD on 12/24/2021 04:03:05 PM [facility]
--- NOTE | 2021-12-24 14:34 | XR_ITS ---
FINAL REPORT CLINICAL HISTORY: back pain FINDINGS: Five views were obtained. There is no acute fracture. There is no malalignment. There is 10 degrees of lumbar scoliosis convex to the right. There are advanced changes of degenerative disc disease at L2-L3 and L5-S1. There is moderate facet sclerosis in the lower lumbar spine. IMPRESSION: Advanced degenerative disc disease. Reviewed, Interpreted and Dictated by Tye Cisneros MD Transcribed by Clay Hickman Authenticated by Tye Cisneros MD on 12/24/2021 04:03:02 PM [facility]
== END ==
PROVIDERS: PCP Physician Assistant; Visit Provider Emergency Medicine
DX: M79.605 Pain in left leg (principal); M54.50 Low back pain, unspecified; M25.552 Pain in left hip
CPT/HCPCS: 72100; 73502; 73590

== ENCOUNTER → 2022-01-19 10:00 | Outpatient (CLI) | payer BC, SELFPAY ==
--- NOTE | 2022-01-19 10:00 | MR_ITS ---
FINAL REPORT CLINICAL HISTORY: low back pain radiating down left leg FINDINGS: Multiplanar MR imaging of the lumbar spine was performed without contrast. On the sagittal T2-weighted images, disc degeneration is seen at multiple levels. There are endplate changes at multiple levels. There are Schmorl's nodes at several levels. There is rightward curvature. The vertebral alignment is normal. There is no evidence of fracture. There is a 6 mm mass in the L3 vertebral body that is nonspecific and does not appear to represent a hemangioma. The conus has an unremarkable appearance. No significant canal stenosis is identified. L1-2: There is no significant canal stenosis or neural foraminal narrowing. L2-3: There is an annular bulge, facet arthropathy and vertebral osteophytes. There is a left posterolateral disc protrusion. There is mild right and moderate left neural foraminal narrowing. L3-4: There is an annular bulge and facet arthropathy. There is mild bilateral neural foraminal narrowing. L4-5: There is an annular bulge and facet arthropathy. There is mild left neural foraminal narrowing. L5-S1: An annular bulge is present. There is a small central disc protrusion. There is moderate right neural foraminal narrowing. IMPRESSION: Multilevel degenerative disc disease with areas of neural foraminal narrowing. Disc protrusions at L2-L3 and L5-S1 without significant central canal stenosis. Nonspecific 6 mm mass in the L3 vertebral body does not appear to represent a hemangioma. Reviewed, Interpreted and Dictated by Thomas Montalvo III, MD Transcribed by Clay Hickman Authenticated by Thomas Montalvo III, MD on 01/19/2022 12:28:35 PM [facility]
== END ==
PROVIDERS: PCP Physician Assistant; Visit Provider Physician Assistant
DX: M54.16 Radiculopathy, lumbar region (principal); M54.50 Low back pain, unspecified
CPT/HCPCS: 72148; 76376

== ENCOUNTER → 2022-02-01 10:12 | Outpatient (CLI) | payer BC, SELFPAY ==
[2022-02-01 10:33] LABS: Chloride 105 mmol/L (98-107); Potassium 4.2 mmoL/L (3.5-5.1); Sodium 137 mmol/L (136-145)
[2022-02-01 10:36] LABS: Anion Gap 8.2 mEq/L (5-15); Blood Urea Nitrogen 17 mg/dl (7-17); Calcium 9.6 mg/dl (8.4-10.2); Carbon Dioxide 28 mmol/L (22.0-30.0); Estimated Glomerular Filt Rate 86 ml/min (>60); GFR (African American) 104 ML/MIN (>60); Glucose 135 mg/dl (74-100)
== END ==
PROVIDERS: PCP Physician Assistant; Visit Provider Physician Assistant
DX: Z01.818 Encounter for other preprocedural examination (principal)
CPT/HCPCS: 36415; 80048

== ENCOUNTER → 2022-02-03 08:54 | Outpatient (CLI) | payer BC, SELFPAY ==
--- NOTE | 2022-02-03 08:55 | MR_ITS ---
FINAL REPORT CLINICAL HISTORY: Nonspecific 6 mm mass in the L3 vertebral body. ABNORMAL MRI 01-19-22. LEFT SIDED HIP AND LEG PAIN [id number] PROHANCE. COMPARISON: 01/19/2022 FINDINGS: Multiplanar MR imaging of the lumbar spine was performed without and with contrast. On the sagittal images, disc degeneration is seen at multiple levels. There are endplate changes at multiple levels. Again identified is a 6 mm mass in the L3 vertebral body. There is also a 9 mm focus of abnormal signal in the superior L1 vertebral body. There is no evidence of contrast enhancement but etiology is unclear. Again seen is the left posterolateral disc protrusion at L2-3 and small central disc protrusion at L5-S1. Multilevel neural foraminal narrowing is seen, worst at L5-S1. IMPRESSION: Masses in the L3 and L1 vertebral bodies of uncertain etiology but favor benign. Follow-up MRI in 6-12 months may be helpful. Reviewed, Interpreted and Dictated by Thomas Montalvo III, MD Transcribed by Aubrie Summers Authenticated and [facility]
== END ==
PROVIDERS: PCP Physician Assistant; Visit Provider Physician Assistant
DX: M54.50 Low back pain, unspecified (principal); M79.606 Pain in leg, unspecified
CPT/HCPCS: 72158; 76376; A9576

== ENCOUNTER 2022-04-27 11:00 | Outpatient (RCR) | payer BC, SELFPAY | END 2022-04-27 11:05 | disposition home or self-care (01) | LOC: PT 11:00 | PROVIDERS: PCP Physician Assistant; Visit Provider Nurse Practitioner Family | DX: M54.42 Lumbago with sciatica, left side (principal); G89.29 Other chronic pain | CPT/HCPCS: 97010; 97012; 97014; 97110; 97140; 97163; 97164; 97530; 97535; G0283 ==

== ENCOUNTER → 2022-04-29 10:14 | Outpatient (CLI) | payer BC, SELFPAY ==
--- NOTE | 2022-04-29 10:15 | MR_ITS ---
FINAL REPORT CLINICAL HISTORY: LEFT HIP AND BACK PAIN X'S 6 MONTHS. WORSE WITH STANDING. FINDINGS: Multiplanar MR imaging of the left hip was performed without contrast. Sagittal images of the right hip were provided. No sagittal imaging of the left hip was performed. There is no evidence of fracture or dislocation. There are mild degenerative changes of both hips. There is no evidence of avascular necrosis. No bony mass is identified. No labral tear is identified. No significant joint effusion is seen. There is a high-grade tear at the insertion of the left gluteus minimus with adjacent fluid and soft tissue edema. The musculature is intact. No soft tissue mass or cyst is identified. IMPRESSION: Limited exam. High-grade tear at the insertion of the left gluteus minimus with adjacent fluid and soft tissue edema. Reviewed, Interpreted and Dictated by Thomas Montalvo III, MD Transcribed by Clay Hickman Authenticated and [facility]
== END ==
PROVIDERS: PCP Physician Assistant; Visit Provider Physician Assistant
DX: M25.552 Pain in left hip (principal)
CPT/HCPCS: 73721

== ENCOUNTER → 2022-06-09 17:39 | Outpatient (CLI) | payer BC, SELFPAY ==
[2022-06-09 15:30] LABS: Basophils % 0.9 % (0.1-2.0); Eosinophils # 0.1 K/mm3 (0.0-0.4); Eosinophils % 2.1 % (0.1-12.0); Hematocrit 42.7 % (37.0-47.0); Hemoglobin 13.5 g/dL (12.2-16.2); Lymphocytes # 1.4 K/mm3 (0.7-4.5); Lymphocytes % 27.9 % (10-50); Mean Corpuscular HGB Conc 31.6 g/dL (31.8-35.4); Mean Corpuscular Hemoglobin 30.9 pg (27.0-31.2); Mean Corpuscular Volume 97.8 fl (81-99); Mean Platelet Volume 11.1 fl (7.4-10.4); Monocytes # 0.2 K/mm3 (0.1-1.0); Monocytes % 3.9 % (1.7-9.3); Neutrophils # 3.2 K/mm3 (1.8-7.8); Neutrophils % 65.2 % (37.0-80.0); Platelet Count 186 K/mm3 (142-424); Red Blood Count 4.36 M/mm3 (4.20-5.40); Red Cell Distribution Width 13.5 % (11.5-17.5); White Blood Count 4.9 K/mm3 (4.8-10.8)
[2022-06-09 15:32] LABS: Microalbumin/Creatinine Ratio 17.3
[2022-06-09 15:34] LABS: Creatinine,Urine Random 203 mg/dL (Not Estab.)
[2022-06-09 15:54] LABS: Hemoglobin A1C 8.7 % (4.0-6.0)
[2022-06-09 16:06] LABS: Alanine Aminotransferase 15 U/L (12-78); Albumin Level 3.7 g/dl (3.5-5.0); Albumin/Globulin Ratio 1.6 (1.1-1.8); Alkaline Phosphatase 96 U/L (38-126); Anion Gap 15.6 mEq/L (5-15); Aspartate Amino Transferase 17 U/L (14-36); Bilirubin,Total 0.2 mg/dl (0.2-1.3); Blood Urea Nitrogen 14 mg/dl (7-17); Calcium 8.9 mg/dl (8.4-10.2); Carbon Dioxide 27 mmol/L (22.0-30.0); Chloride 99 mmol/L (98-107); Chol/HDL Ratio 3.4 (1-3.5); Cholesterol 213 mg/dl (140-200); Estimated Glomerular Filt Rate 86 ml/min (>60); GFR (African American) 104 ML/MIN (>60); Globulin 2.3 g/dL (1.3-3.2); Glucose 216 mg/dl (74-100); HDL Cholesterol 63 mg/dl (40-60); Potassium 4.6 mmoL/L (3.5-5.1); Sodium 137 mmol/L (136-145); Triglycerides 126 mg/dl (30-150); VLDL Cholesterol 25 mg/dL (0-40)
[2022-06-09 16:17] LABS: Direct LDL Cholesterol 114.23 mg/dL (100-129)
[2022-06-09 16:22] LABS: 25-OH Vitamin D, Total 22.9 ng/mL (30-100)
[2022-06-09 16:40] LABS: Thyroid Stimulating Hormone 0.57 uIU/mL (0.465-4.68)
[2022-06-09 16:59] LABS: Vitamin B12 298 pg/mL (239-931)
== END ==
PROVIDERS: PCP Physician Assistant; Visit Provider Physician Assistant
DX: E11.9 Type 2 diabetes mellitus without complications (principal); E55.9 Vitamin D deficiency, unspecified; Z79.899 Other long term (current) drug therapy
CPT/HCPCS: 80053; 80061; 82043; 82306; 82570; 82607; 83036; 84443; 85025

== ENCOUNTER → 2022-06-20 15:32 | Outpatient (CLI) | payer BC, SELFPAY | PROVIDERS: PCP Student in an Organized Health Care Education/Training Program; Visit Provider Student in an Organized Health Care Education/Training Program | DX: R35.0 Frequency of micturition (principal) | CPT/HCPCS: 87086 ==

== ENCOUNTER → 2022-06-27 07:59 | Outpatient (CLI) | payer BC, SELFPAY ==
--- NOTE | 2022-06-27 07:59 | MM_ITS ---
PROCEDURE INFORMATION: Exam: MG Bilateral Screening 3D Mammography Exam date and time: 06/27/2022 7:52 AM Age: 61 years old Clinical indication: Screening examination. History of benign biopsies. Her paternal aunt had breast cancer. TECHNIQUE: Imaging protocol: Bilateral Screening tomosynthesis and 2D mammography including computer-aided detection (CAD) when performed. COMPARISON: 1. MG MM DIG SCREENING MAMM BI W/CAD 04/29/2021 10:23 AM 2. MG MM CLIP PLACEMENT LT 09/18/2019 2:38 PM 3. MG MM SURGICAL SPECIMEN LT 09/18/2019 2:16 PM 4. MG MM STEREOTACTIC LOC LT 09/18/2019 1:39 PM FINDINGS: MAMMOGRAPHY: Breast composition: There are scattered areas of fibroglandular density. Mass: No suspicious mass. Architectural distortion: None. Calcifications: No suspicious calcifications. Asymmetric density: None. Skin thickening: None. Axillary adenopathy: None. Other findings: Left biopsy clips. IMPRESSION: No mammographic evidence of malignancy. Annual screening is recommended unless otherwise clinically indicated. ASSESSMENT: BI-RADS Category 2: Benign
== END ==
PROVIDERS: PCP Physician Assistant; Visit Provider Physician Assistant
DX: Z12.31 Encounter for screening mammogram for malignant neoplasm of breast (principal)
CPT/HCPCS: 77063; 77067

== ENCOUNTER → 2022-07-04 13:21 | Outpatient (CLI) | payer BC, SELFPAY | PROVIDERS: PCP Student in an Organized Health Care Education/Training Program; Visit Provider Student in an Organized Health Care Education/Training Program | DX: N39.0 Urinary tract infection, site not specified (principal) | CPT/HCPCS: 87086 ==

== ENCOUNTER → 2022-09-01 09:27 | Outpatient (CLI) | payer BC, SELFPAY ==
[2022-09-01 15:19] LABS: Basophils # 0.1 K/mm3 (0-0.2); Eosinophils # 0.1 K/mm3 (0.0-0.4); Eosinophils % 1.3 % (0.1-12.0); Hematocrit 45.4 % (37.0-47.0); Hemoglobin 13.8 g/dL (12.2-16.2); Lymphocytes # 2.1 K/mm3 (0.7-4.5); Lymphocytes % 24.9 % (10-50); Mean Corpuscular HGB Conc 30.4 g/dL (31.8-35.4); Mean Corpuscular Hemoglobin 30.9 pg (27.0-31.2); Mean Corpuscular Volume 101.5 fl (81-99); Mean Platelet Volume 12.3 fl (7.4-10.4); Monocytes # 0.4 K/mm3 (0.1-1.0); Monocytes % 4.4 % (1.7-9.3); Neutrophils # 5.8 K/mm3 (1.8-7.8); Neutrophils % 68.4 % (37.0-80.0); Platelet Count 222 K/mm3 (142-424); Red Blood Count 4.47 M/mm3 (4.20-5.40); Red Cell Distribution Width 13.4 % (11.5-17.5); White Blood Count 8.5 K/mm3 (4.8-10.8)
[2022-09-01 15:40] LABS: Chloride 107 mmol/L (98-107); Potassium 4.8 mmoL/L (3.5-5.1); Sodium 141 mmol/L (136-145)
[2022-09-01 15:43] LABS: Alanine Aminotransferase 16 U/L (12-78); Albumin/Globulin Ratio 1.6 (1.1-1.8); Alkaline Phosphatase 86 U/L (38-126); Anion Gap 10.8 mEq/L (5-15); Aspartate Amino Transferase 19 U/L (14-36); Bilirubin,Total 0.4 mg/dl (0.2-1.3); Blood Urea Nitrogen 23 mg/dl (7-17); Calcium 9.2 mg/dl (8.4-10.2); Carbon Dioxide 28 mmol/L (22.0-30.0); Cholesterol 157 mg/dl (140-200); Estimated Glomerular Filt Rate 73 ml/min (>60); GFR (African American) 89 ML/MIN (>60); Globulin 2.5 g/dL (1.3-3.2); Glucose 170 mg/dl (74-100); Total Protein,Serum 6.5 g/dl (6.3-8.2); Triglycerides 115 mg/dl (30-150); VLDL Cholesterol 23 mg/dL (0-40)
[2022-09-01 15:44] LABS: Chol/HDL Ratio 2.7 (1-3.5); HDL Cholesterol 59 mg/dl (40-60)
[2022-09-01 15:54] LABS: 25-OH Vitamin D, Total 47.6 ng/mL (30-100)
[2022-09-01 15:55] LABS: Direct LDL Cholesterol 65.99 mg/dL (100-129)
[2022-09-01 16:01] LABS: Hemoglobin A1C 8.1 % (4.0-6.0)
[2022-09-01 16:14] LABS: Thyroid Stimulating Hormone 0.83 uIU/mL (0.465-4.68)
== END ==
PROVIDERS: PCP Physician Assistant; Visit Provider Physician Assistant
DX: E11.9 Type 2 diabetes mellitus without complications (principal); Z79.84 Long term (current) use of oral hypoglycemic drugs
CPT/HCPCS: 80053; 80061; 82306; 83036; 84443; 85025

== ENCOUNTER → 2022-10-18 16:42 | Outpatient (CLI) | payer BC, SELFPAY ==
[2022-10-18 18:13] LABS: Blood Urea Nitrogen 15 mg/dl (7-17); Estimated Glomerular Filt Rate 64 ml/min (>60); GFR (African American) 78 ML/MIN (>60)
== END ==
PROVIDERS: PCP Physician Assistant; Visit Provider Physician Assistant
DX: Z01.812 Encounter for preprocedural laboratory examination (principal)
CPT/HCPCS: 36415; 82565; 84520

== ENCOUNTER 2022-10-20 17:28 | Emergency (ER) | payer BC, SELFPAY ==
[2022-10-20 17:30] VITALS: BP 128/82; PULSE 78; RESP 20; TEMP 36.8; O2SAT 97; BMI 28.8
--- NOTE | 2022-10-20 17:46 | EXP.UTC ---
Discharge Plan Disposition Patient Disposition: Home, Self-Care Condition: Good Prescriptions Prescriptions: New doxycycline hyclate [doxycycline hyclate] 100 mg capsule 100 mg PO Q12 10 Days Qty: 20 0RF fluconazole [Diflucan] 150 mg tablet 150 mg PO ONCE Qty: 1 5RF No Action cyclobenzaprine 10 mg tablet 10 mg PO HS Qty: 30 0RF cholecalciferol (vitamin D3) 1,250 mcg (50,000 unit) capsule See Rx Instructions .ROUTE .COMPLEX Qty: 12 0RF Dose Instruction: TAKE 1 CAPSULE BY MOUTH ONCE WEEKLY Rx Instructions: TAKE 1 CAPSULE BY MOUTH ONCE WEEKLY fluticasone propionate [Flonase Allergy Relief] 50 mcg/actuation spray,suspension 1 spray intranasal QDAY 30 Days Qty: 9.9 0RF Rx Instructions: administer into each nostril gabapentin [Neurontin] 400 mg capsule 400 mg PO TID Qty: 90 2RF Ozempic 0.25 mg or 0.5 mg(2 mg/1.5 mL) pen injector 0.5 mg SQ WEEKLY Qty: 1.5 1RF Rx Instructions: for 4 weeks (DME) blood-glucose meter [Accu-Chek Gail Plus Meter] [facility] [place] See Rx Instructions .Route Qty: 1 0RF Rx Instructions: As directed losartan 25 mg tablet 12.5 mg PO DAILY Qty: 90 3RF Rx Instructions: Pt to take 1/2 tablet daily Farxiga 5 mg tablet 5 mg PO DAILY Qty: 90 3RF atorvastatin 10 mg tablet 10 mg PO DAILY Qty: 90 3RF metformin 500 mg tablet extended release 24hr 1,000 mg PO DAILY Qty: 180 2RF (DME) OneTouch Ultra Test Strip See Rx Instructions .ROUTE .COMPLEX Qty: 100 0RF Dose Instruction: DIRECTED Rx Instructions: DIRECTED meloxicam 15 mg tablet See Rx Instructions .ROUTE .COMPLEX Qty: 90 0RF Dose Instruction: TAKE ONE TABLET BY MOUTH EVERY DAY FOR PAIN TAKE WITH FOOD Rx Instructions: TAKE ONE TABLET BY MOUTH EVERY DAY FOR PAIN TAKE WITH FOOD glipizide 10 mg tablet extended release 24hr See Rx Instructions .ROUTE .COMPLEX Qty: 90 0RF Dose Instruction: TAKE ONE TABLET BY MOUTH EVERY DAY Rx Instructions: TAKE ONE TABLET BY MOUTH EVERY DAY sertraline 100 mg tablet See Rx Instructions .ROUTE .COMPLEX Qty: 90 0RF Dose Instruction: TAKE ONE TABLET BY MOUTH EVERY DAY Rx Instructions: TAKE ONE TABLET BY MOUTH EVERY DAY atenolol 25 mg tablet See Rx Instructions .ROUTE .COMPLEX Qty: 90 0RF Dose Instruction: TAKE 1 TABLET BY MOUTH ONCE DAILY Rx Instructions: TAKE 1 TABLET BY MOUTH ONCE DAILY (DME) pen needle, diabetic [Comfort EZ Pen Lutcher] 32 gauge x 1/4 needle See Rx Instructions .Route Qty: 50 0RF Rx Instructions: As directed Referrals Follow up/Referrals: Mari Allen PA [Primary Care Provider] - See instructions Activity Restrictions/Add. Instructions Additional Instructions/Restrictions: Take the medications as directed. Apply warm wet compresses to the area 3 to 4 times per day. Follow up with Mari for a recheck in around 48 hours. GO TO THE ER FOR ANY WORSENING SYMPTOMS Clinical Impressions Clinical Impression: Inguinal adenopathy Instructions Patient Instructions: DI for Lymphadenopathy Discharge ED Provider: Yousuf Rothman [facility] General Stated complaint: swollen painful area of groin Time Seen by Provider: 10/20/22 17:44 History of Present Illness Provider Complaint: She states that for the past 4 days she has had worsening pain of her right groin. She denies any injury. Related Data Previous Rx's Medication Instructions Recorded blood-glucose meter (Accu-Chek #1 ea 08/30/21 Gail Plus Meter) cyclobenzaprine 10 mg tablet 10 mg PO HS #30 tabs 01/05/22 cholecalciferol (vitamin D3) 1,250 See Rx Instructions .Route 06/09/22 mcg (50,000 unit) capsule .COMPLEX #12 caps atorvastatin 10 mg tablet 10 mg PO DAILY #90 tabs 06/10/22 dapagliflozin 5 mg tablet (Farxiga) 5 mg PO DAILY #90 tabs 06/10/22 losartan 25 mg tablet 12.5 mg PO DAILY Diabetes #90 tabs
[2022-10-20 18:43] LABS: Apearance,Urine Clear (Clear); Color,Urine Yellow (Yellow); PH,Urine 5.5 (5.0-8.5)
[2022-10-20 18:44] LABS: Protein,Urine Negative (Negative)
[2022-10-20 18:45] LABS: Bilirubin,Urine Negative (Negative); Blood, Urine Negative (Negative); Glucose,Urine (UA) 1+ (Negative); Ketones,Urine Negative (Negative); UTC Leukocyte Esterase,Urine Negative (Negative); UTC Nitrate,Urine Negative (Negative); Urobilinogen,Urine 0.2 EU/dl (0.2)
[2022-10-20 18:53] LABS: Basophils # 0.1 K/mm3 (0-0.2); Eosinophils # 0.1 K/mm3 (0.0-0.4); Eosinophils % 1.9 % (0.1-12.0); Hematocrit 41.3 % (37.0-47.0); Hemoglobin 13.5 g/dL (12.2-16.2); Lymphocytes # 1.9 K/mm3 (0.7-4.5); Lymphocytes % 29.2 % (10-50); Mean Corpuscular HGB Conc 32.7 g/dL (31.8-35.4); Mean Corpuscular Hemoglobin 31.3 pg (27.0-31.2); Mean Corpuscular Volume 95.6 fl (81-99); Mean Platelet Volume 10.2 fl (7.4-10.4); Monocytes # 0.3 K/mm3 (0.1-1.0); Monocytes % 5.1 % (1.7-9.3); Neutrophils % 62.8 % (37.0-80.0); Platelet Count 221 K/mm3 (142-424); Red Blood Count 4.32 M/mm3 (4.20-5.40); Red Cell Distribution Width 13.3 % (11.5-17.5); White Blood Count 6.4 K/mm3 (4.8-10.8)
[2022-10-20 18:57] LABS: Chloride 102 mmol/L (98-107); Sodium 137 mmol/L (136-145)
[2022-10-20 18:59] LABS: Blood Urea Nitrogen 20 mg/dl (7-17)
[2022-10-20 19:00] LABS: Calcium 8.8 mg/dl (8.4-10.2); Carbon Dioxide 29 mmol/L (22.0-30.0); Creatinine Clearance Estimated 71 mL/min (50-200); Estimated Glomerular Filt Rate 57 ml/min (>60); GFR (African American) 69 ML/MIN (>60); Glucose 130 mg/dl (74-100)
[2022-10-20 19:51] VITALS: BP 128/82; PULSE 78; RESP 20; TEMP 36.8; O2SAT 97
== END 2022-10-20 19:49 | disposition home or self-care (01) ==
PROVIDERS: Emergency Provider Nurse Practitioner Family; PCP Physician Assistant
DX: R59.0 Localized enlarged lymph nodes (principal)
CPT/HCPCS: 80048; 81003; 85025; 99212; 99214; G0463

== ENCOUNTER → 2022-10-22 07:45 | Outpatient (CLI) | payer BC, SELFPAY ==
--- NOTE | 2022-10-22 07:45 | MR_ITS ---
PROCEDURE INFORMATION: Exam: MR Lumbar Spine Without and With Contrast Exam date and time: 10/22/2022 7:49 AM Age: 61 years old Clinical indication: Low back pain; Additional info: Abnormal mri lumbar spine (masses vertebral body) TECHNIQUE: Imaging protocol: Magnetic resonance imaging of the lumbar spine without and with contrast. Contrast material: PROHANCE; Contrast volume: 15 ml; Contrast route: IV; COMPARISON: MR LUMBAR SPINE WO/W CON 02/03/2022 9:02 AM FINDINGS: Bones/joints: Mild dextroscoliosis is re-identified. Interval stability of subcentimeter T1 hypointense foci at L1 and L3 vertebrae. No abnormal enhancement Spinal cord: Conus medullaris and cauda equina nerve roots are unremarkable L1-L2: No significant disc bulge or herniation. No severe spinal canal stenosis. No significant neural foraminal narrowing. L2-L3: Diffuse disc bulge and facet arthropathy produce mild thecal sac compression. There is moderate left, no significant right neural foraminal narrowing. L3-L4: Diffuse disc bulge and facet arthropathy without significant spinal canal or neural foramina narrowing. L4-L5: No significant disc bulge or herniation. No severe spinal canal stenosis. No significant neural foraminal narrowing. L5-S1: Diffuse disc with superimposed focal annular tear without significant spinal canal stenosis. There is mild bilateral neural foraminal narrowing. Soft tissues: Unremarkable. IMPRESSION: 1. Interval stability of subcentimeter T1 hypointense foci at L1 and L3 vertebrae, which is reassuring. Enostosis are a possible differential 2. No substantial change in multilevel degenerative changes most significant at L2-L3 producing moderate narrowing of the left neural foramen
== END ==
PROVIDERS: PCP Physician Assistant; Visit Provider Physician Assistant
DX: R93.7 Abnormal findings on diagnostic imaging of other parts of musculoskeletal system (principal)
CPT/HCPCS: 72158; 76376; A9576

== ENCOUNTER → 2022-10-31 07:17 | Outpatient (CLI) | payer BC, SELFPAY ==
--- NOTE | 2022-10-31 07:17 | CT_ITS ---
FINAL REPORT TECHNIQUE: Axial imaging of the pelvis was obtained without contrast.This study was performed with techniques to keep radiation doses as low as reasonably achievable, (ALARA). Individualized dose reduction technique using automated exposure control or adjustment of mA and/or kV according to the patient's size were employed. CLINICAL HISTORY: Swollen Lymph Node, right inner hip/ pelvis FINDINGS: There is no acute fracture or dislocation. Femoral heads are located bilaterally. Soft tissues demonstrate no acute abnormality. Sacral ala are intact. There are moderate vascular calcifications. The appendix is normal. Several small inguinal lymph nodes are seen. There is no evidence of adenopathy. Musculature is intact. IMPRESSION: No acute process. No evidence of adenopathy. Reviewed, Interpreted and Dictated by Thomas Montalvo III, MD Transcribed by Colette Buenrostro Authenticated and [facility]
== END ==
PROVIDERS: PCP Physician Assistant; Visit Provider Physician Assistant
DX: R59.9 Enlarged lymph nodes, unspecified (principal)
CPT/HCPCS: 72192

== ENCOUNTER → 2022-12-13 09:41 | Outpatient (CLI) | payer BC, SELFPAY ==
[2022-12-13 14:56] LABS: Anion Gap 11.5 mEq/L (5-15); Blood Urea Nitrogen 19 mg/dl (7-17); Calcium 9.2 mg/dl (8.4-10.2); Carbon Dioxide 30 mmol/L (22.0-30.0); Chloride 104 mmol/L (98-107); Estimated Glomerular Filt Rate 73 ml/min (>60); GFR (African American) 89 ML/MIN (>60); Glucose 133 mg/dl (74-100); Potassium 4.5 mmoL/L (3.5-5.1); Sodium 141 mmol/L (136-145)
== END ==
PROVIDERS: PCP Physician Assistant; Visit Provider Physician Assistant
DX: E78.5 Hyperlipidemia, unspecified (principal)
CPT/HCPCS: 80048; 83735

== ENCOUNTER 2023-04-13 14:26 | Emergency (ER) | payer BC, SELFPAY ==
[2023-04-13 14:35] VITALS: BP 104/71; PULSE 90; RESP 18; TEMP 36.9; O2SAT 97; BMI 26.9
[2023-04-13 15:03] LABS: UTC Strep Screen (Rapid) Negative (Negative)
--- NOTE | 2023-04-13 15:04 | EXP.UTC ---
Discharge Plan Disposition Patient Disposition: Home, Self-Care Condition: Good Prescriptions Prescriptions: New azithromycin [Zithromax Z-Sanya] 250 mg tablet See Rx Instructions .ROUTE .COMPLEX 5 Days Qty: 6 0RF Rx Instructions: For 250 mg dose pack: take 500 mg today (day 1), then 250 mg for 4 days (days 2-5) No Action cholecalciferol (vitamin D3) 1,250 mcg (50,000 unit) capsule See Rx Instructions .ROUTE .COMPLEX Qty: 12 0RF Dose Instruction: TAKE 1 CAPSULE BY MOUTH ONCE WEEKLY Rx Instructions: TAKE 1 CAPSULE BY MOUTH ONCE WEEKLY cyclobenzaprine 10 mg tablet 10 mg PO HS Qty: 30 0RF fluticasone propionate [Flonase Allergy Relief] 50 mcg/actuation spray,suspension 1 spray intranasal QDAY 30 Days Qty: 9.9 0RF Rx Instructions: administer into each nostril gabapentin [Neurontin] 400 mg capsule 400 mg PO TID Qty: 90 2RF (DME) blood-glucose meter [Accu-Chek Gail Plus Meter] Misc See Rx Instructions .Route Qty: 1 0RF Rx Instructions: As directed losartan 25 mg tablet 12.5 mg PO DAILY Qty: 90 3RF Rx Instructions: Pt to take 1/2 tablet daily Farxiga 5 mg tablet 5 mg PO DAILY Qty: 90 3RF atorvastatin 10 mg tablet 10 mg PO DAILY Qty: 90 3RF metformin 500 mg tablet extended release 24hr 1,000 mg PO DAILY Qty: 180 2RF (DME) pen needle, diabetic [Comfort EZ Pen [place]] 32 gauge x 1/4 needle See Rx Instructions .Route Qty: 50 0RF Rx Instructions: As directed (DME) OneTouch Ultra Test Strip See Rx Instructions .ROUTE .COMPLEX Qty: 100 0RF Dose Instruction: DIRECTED Rx Instructions: DIRECTED meloxicam 15 mg tablet See Rx Instructions .ROUTE .COMPLEX Qty: 90 0RF Dose Instruction: TAKE ONE TABLET BY MOUTH EVERY DAY FOR PAIN TAKE WITH FOOD Rx Instructions: TAKE ONE TABLET BY MOUTH EVERY DAY FOR PAIN TAKE WITH FOOD glipizide 10 mg tablet extended release 24hr See Rx Instructions .ROUTE .COMPLEX Qty: 90 0RF Dose Instruction: TAKE ONE TABLET BY MOUTH EVERY DAY Rx Instructions: TAKE ONE TABLET BY MOUTH EVERY DAY atenolol 25 mg tablet See Rx Instructions .ROUTE .COMPLEX Qty: 90 0RF Dose Instruction: TAKE 1 TABLET BY MOUTH ONCE DAILY Rx Instructions: TAKE 1 TABLET BY MOUTH ONCE DAILY sertraline 100 mg tablet See Rx Instructions .ROUTE .COMPLEX Qty: 90 0RF Dose Instruction: TAKE ONE TABLET BY MOUTH EVERY DAY Rx Instructions: TAKE ONE TABLET BY MOUTH EVERY DAY Ozempic 0.25 mg or 0.5 mg(2 mg/1.5 mL) pen injector See Rx Instructions .ROUTE .COMPLEX Qty: 1.5 0RF Dose Instruction: INJECT 0.5 MG SUBCUTANEOUSLY WEEKLY Rx Instructions: INJECT 0.5 MG SUBCUTANEOUSLY WEEKLY doxycycline hyclate [doxycycline hyclate] 100 mg capsule 100 mg PO Q12 10 Days Qty: 20 0RF fluconazole [Diflucan] 150 mg tablet 150 mg PO ONCE Qty: 1 5RF Referrals Follow up/Referrals: Mari Allen PA [Primary Care Provider] - See instructions Activity Restrictions/Add. Instructions Additional Instructions/Restrictions: *Monitor Temp, Over the counter Motrin or Tylenol as directed/as needed Tylenol every 4 hours and Motrin every 6 hours (as long as your family doctor has told you that you can take it) for fever or pain. and straight to ER if unable to lower temp less than 101.0 after medication given *Warm salt water gargles may help to soothe the throat *Throat Lozenges? *Warm fluids like tea with honey may help to soothe the throat? *Sleep elevated *Humidifier/Vaporizer Your throat swab was sent for culture. Those results are typically sent to your primary care. Be sure to follow up in 2-3 days with your family doctor/primary care physician if no improvement so they can review those result and treat if necessary. If you don?t have a primary care doctor, I recommend you get one but in
[2023-04-13 15:26] VITALS: BP 104/71; PULSE 90; RESP 18; TEMP 36.9; O2SAT 97
== END 2023-04-13 15:40 | disposition home or self-care (01) ==
PROVIDERS: Emergency Provider Nurse Practitioner; PCP Physician Assistant
DX: J01.90 Acute sinusitis, unspecified (principal); E11.9 Type 2 diabetes mellitus without complications; I10 Essential (primary) hypertension; K21.9 Gastro-esophageal reflux disease without esophagitis; E55.9 Vitamin D deficiency, unspecified; F41.9 Anxiety disorder, unspecified; F32.A Depression, unspecified; Z79.84 Long term (current) use of oral hypoglycemic drugs
CPT/HCPCS: 87880; 96372; 99212; 99214; G0463

== ENCOUNTER 2023-07-05 10:18 | Emergency (ER) | payer BC, SELFPAY ==
[2023-07-05 10:30] VITALS: BP 148/86; PULSE 76; RESP 18; TEMP 36.8; O2SAT 99; BMI 28.1
--- NOTE | 2023-07-05 11:02 | EXP.UTC ---
Discharge Plan Disposition Patient Disposition: Home, Self-Care Condition: Good Prescriptions Prescriptions: New Debrox 6.5 % drops 5 drp otic (ear) DAILY 4 Days Qty: 15 0RF No Action cholecalciferol (vitamin D3) 1,250 mcg (50,000 unit) capsule See Rx Instructions .ROUTE .COMPLEX Qty: 12 0RF Dose Instruction: TAKE 1 CAPSULE BY MOUTH ONCE WEEKLY Rx Instructions: TAKE 1 CAPSULE BY MOUTH ONCE WEEKLY cyclobenzaprine 10 mg tablet 10 mg PO HS Qty: 30 0RF fluticasone propionate [Flonase Allergy Relief] 50 mcg/actuation spray,suspension 1 spray intranasal QDAY 30 Days Qty: 9.9 0RF Rx Instructions: administer into each nostril gabapentin [Neurontin] 400 mg capsule 400 mg PO TID Qty: 90 2RF (DME) blood-glucose meter [Accu-Chek Gail Plus Meter] Misc See Rx Instructions .Route Qty: 1 0RF Rx Instructions: As directed Farxiga 5 mg tablet 5 mg PO DAILY Qty: 90 3RF atorvastatin 10 mg tablet 10 mg PO DAILY Qty: 90 3RF (DME) pen needle, diabetic [Comfort EZ Pen [place]] 32 gauge x 1/4 needle See Rx Instructions .Route Qty: 50 0RF Rx Instructions: As directed (DME) OneTouch Ultra Test Strip See Rx Instructions .ROUTE .COMPLEX Qty: 100 0RF Dose Instruction: DIRECTED Rx Instructions: DIRECTED Ozempic 0.25 mg or 0.5 mg (2 mg/3 mL) pen injector See Rx Instructions .ROUTE .COMPLEX Qty: 3 1RF Dose Instruction: INJECT 0.5 MG SUBCUTANEOUSLY WEEKLY Rx Instructions: INJECT 0.5 MG SUBCUTANEOUSLY WEEKLY metformin 500 mg tablet extended release 24hr 1,000 mg PO DAILY Qty: 180 3RF meloxicam 15 mg tablet See Rx Instructions .ROUTE .COMPLEX Qty: 90 0RF Dose Instruction: TAKE ONE TABLET BY MOUTH EVERY DAY FOR PAIN TAKE WITH FOOD Rx Instructions: TAKE ONE TABLET BY MOUTH EVERY DAY FOR PAIN TAKE WITH FOOD glipizide 10 mg tablet extended release 24hr See Rx Instructions .ROUTE .COMPLEX Qty: 90 0RF Dose Instruction: TAKE ONE TABLET BY MOUTH EVERY DAY Rx Instructions: TAKE ONE TABLET BY MOUTH EVERY DAY atenolol 25 mg tablet See Rx Instructions .ROUTE .COMPLEX Qty: 90 0RF Dose Instruction: TAKE 1 TABLET BY MOUTH ONCE DAILY Rx Instructions: TAKE 1 TABLET BY MOUTH ONCE DAILY sertraline 100 mg tablet See Rx Instructions .ROUTE .COMPLEX Qty: 90 0RF Dose Instruction: TAKE ONE TABLET BY MOUTH EVERY DAY Rx Instructions: TAKE ONE TABLET BY MOUTH EVERY DAY losartan 25 mg tablet See Rx Instructions .ROUTE .COMPLEX Qty: 90 2RF Dose Instruction: TAKE 1/2 TABLET BY MOUTH ONCE DAILY Rx Instructions: TAKE 1/2 TABLET BY MOUTH ONCE DAILY Referrals Follow up/Referrals: Mari Allen PA [Primary Care Provider] - See instructions Clinical Impressions Clinical Impression: Impacted cerumen of right ear Instructions Patient Instructions: Cerumen Impaction Discharge ED Provider: Enio ([facility] [facility] [place] General Stated complaint: Rt ear pain, sore throat Mode of Arrival: Ambulatory Source of Information: Patient Limitations: No Limitations Time Seen by Provider: 07/05/23 11:02 Description of Symptoms (Recalled from Triage Doc. by RN): right ear pain HEENT Symptoms (Recalled from RN notes): Yes Resp Symptoms (Recalled from RN notes): No Skin Symptoms (Recalled from RN notes): No MS Symptoms (Recalled from RN notes): No Functional Status (Recalled from RN notes): n/a History of Present Illness Provider Complaint: 62 yr old female presents for rt ear pain Related Data Previous Rx's Medication Instructions Recorded blood-glucose meter (Accu-Chek #1 ea 08/30/21 Gail Plus Meter) cholecalciferol (vitamin D3) 1,250 See Rx Instructions .Route 06/09/22 mcg (50,000 unit) capsule .COMPLEX #12 caps atorvastatin 10 mg tablet 10 mg PO DAILY #90 tabs 06/10/22 dapagliflozin propanediol 5 mg 5 mg PO DAILY #90 tabs
[2023-07-05 11:16] VITALS: BP 148/86; PULSE 76; RESP 18; TEMP 36.8; O2SAT 99
== END 2023-07-05 11:16 | disposition home or self-care (01) ==
PROVIDERS: Emergency Provider Nurse Practitioner Family; PCP Physician Assistant
DX: H61.21 Impacted cerumen, right ear (principal); R07.0 Pain in throat; E11.9 Type 2 diabetes mellitus without complications; I10 Essential (primary) hypertension; Z79.84 Long term (current) use of oral hypoglycemic drugs; Z79.85 Long-term (current) use of injectable non-insulin antidiabetic drugs; H92.01 Otalgia, right ear
CPT/HCPCS: 99212; 99214; G0463

== ENCOUNTER → 2023-07-25 07:29 | Outpatient (CLI) | payer BC, SELFPAY ==
--- NOTE | 2023-07-25 07:30 | CT_ITS ---
FINAL REPORT TECHNIQUE: Thin section axial CT images of the facial bones and sinuses were obtained without contrast. Coronal and sagittal reformatted images were also obtained. This study was performed with techniques to keep radiation doses as low as reasonably achievable, (ALARA). Individualized dose reduction techniques using automated exposure control or adjustment of mA and/or kV according to the patient's size were employed. CLINICAL HISTORY: Sinusitis COMPARISON: None FINDINGS: There is a retention cyst or polyp present in the left frontal lobe. No fluid levels are identified. The ostiomeatal units have an unremarkable appearance. There is mild left nasal septal deviation with a left septal spur. No fracture or acute bony abnormality is identified. IMPRESSION: Retention cyst or polyp in the left frontal lobe. Mild left nasal septal deviation with a left septal spur. Reviewed, Interpreted and Dictated by Thomas Montalvo III, MD Transcribed by Radha Chaudhari Authenticated and [facility]
== END ==
PROVIDERS: PCP Physician Assistant; Visit Provider Nurse Practitioner
DX: J32.9 Chronic sinusitis, unspecified (principal)
CPT/HCPCS: 70486

== ENCOUNTER 2024-03-29 11:10 | Outpatient (CLI) | payer BC, SELFPAY ==
[2024-03-29 17:01] LABS: Basophils % 0.9 % (0.1-2.0); Eosinophils # 0.1 K/mm3 (0.0-0.4); Eosinophils % 2.5 % (0.1-12.0); Hematocrit 44.4 % (37.0-47.0); Hemoglobin 13.8 g/dL (12.2-16.2); Lymphocytes # 1.7 K/mm3 (0.7-4.5); Lymphocytes % 33.6 % (10-50); Mean Corpuscular HGB Conc 30.9 g/dL (31.8-35.4); Mean Corpuscular Hemoglobin 31.7 pg (27.0-31.2); Mean Corpuscular Volume 102.3 fl (81-99); Mean Platelet Volume 12.1 fl (7.4-10.4); Monocytes # 0.3 K/mm3 (0.1-1.0); Monocytes % 5.4 % (1.7-9.3); Neutrophils # 2.9 K/mm3 (1.8-7.8); Neutrophils % 57.6 % (37.0-80.0); Platelet Count 213 K/mm3 (142-424); Red Blood Count 4.34 M/mm3 (4.20-5.40); Red Cell Distribution Width 13.5 % (11.5-17.5)
[2024-03-29 17:19] LABS: Hemoglobin A1C 9.8 % (4.0-6.0)
[2024-03-29 17:24] LABS: Alanine Aminotransferase 22 U/L (12-78); Albumin Level 3.8 g/dl (3.5-5.0); Albumin/Globulin Ratio 1.5 (1.1-1.8); Alkaline Phosphatase 92 U/L (38-126); Anion Gap 11.5 mEq/L (5-15); Aspartate Amino Transferase 26 U/L (14-36); Bilirubin,Total 0.4 mg/dl (0.2-1.3); Blood Urea Nitrogen 22 mg/dl (7-17); Calcium 9.4 mg/dl (8.4-10.2); Carbon Dioxide 23 mmol/L (22.0-30.0); Chloride 109 mmol/L (98-107); Chol/HDL Ratio 3.3 (1-3.5); Cholesterol 189 mg/dl (140-200); Estimated Glomerular Filt Rate 85 ml/min (>60); GFR (African American) 103 ML/MIN (>60); Globulin 2.5 g/dL (1.3-3.2); Glucose 147 mg/dl (74-100); HDL Cholesterol 57 mg/dl (40-60); Potassium 4.5 mmoL/L (3.5-5.1); Sodium 139 mmol/L (136-145); Total Protein,Serum 6.3 g/dl (6.3-8.2); Triglycerides 107 mg/dl (30-150); VLDL Cholesterol 21 mg/dL (0-40)
[2024-03-29 17:34] LABS: Direct LDL Cholesterol 98.04 mg/dL (100-129)
[2024-03-29 18:21] LABS: 25-OH Vitamin D, Total 32.1 ng/mL (30-100)
[2024-03-29 18:35] LABS: Thyroid Stimulating Hormone 0.68 uIU/mL (0.465-4.68)
== END 2024-03-29 23:59 | disposition home or self-care (01) ==
LOC: LAB.DROPOF 03-30 09:21
PROVIDERS: PCP Physician Assistant; Visit Provider Physician Assistant
DX: E55.9 Vitamin D deficiency, unspecified; E11.9 Type 2 diabetes mellitus without complications; Z79.84 Long term (current) use of oral hypoglycemic drugs; E78.49 Other hyperlipidemia
CPT/HCPCS: 80050; 80053; 80061; 82306; 83036; 84443; 85025

== ENCOUNTER 2024-04-02 10:19 | Outpatient (CLI) | payer BC, SELFPAY ==
--- NOTE | 2024-04-02 10:19 | MM_ITS ---
PROCEDURE INFORMATION: Exam: MG Bilateral Screening 3D Mammography Exam date and time: 04/02/2024 10:28 AM Age: 63 years old Clinical indication: Screening. A paternal aunt had breast cancer. TECHNIQUE: Imaging protocol: Bilateral Screening tomosynthesis and 2D mammography including computer-aided detection (CAD) when performed. COMPARISON: 1. MG MM DIG SCREENING MAMM BI W/CAD 06/27/2022 7:52 AM 2. MG MM DIG SCREENING MAMM BI W/CAD 04/29/2021 10:23 AM 3. MG MM CLIP PLACEMENT LT 09/18/2019 2:38 PM 4. MG MM SURGICAL SPECIMEN LT 09/18/2019 2:16 PM FINDINGS: MAMMOGRAPHY: Breast composition: There are scattered areas of fibroglandular density. Mass: No suspicious mass. Architectural distortion: None. Calcifications: No suspicious calcifications. Asymmetric density: None. Skin thickening: None. Axillary adenopathy: None. IMPRESSION: No mammographic evidence of malignancy. Annual screening is recommended unless otherwise clinically indicated. ASSESSMENT: BI-RADS Category 1: Negative
== END 2024-04-02 23:59 | disposition home or self-care (01) ==
LOC: RAD 10:19
PROVIDERS: PCP Physician Assistant; Visit Provider Physician Assistant
DX: Z12.31 Encounter for screening mammogram for malignant neoplasm of breast (principal)
CPT/HCPCS: 77063; 77067

== ENCOUNTER 2024-04-19 10:06 | Outpatient (CLI) | payer BC, SELFPAY | END 2024-04-19 23:59 | disposition home or self-care (01) | LOC: LAB.DROPOF 04-22 10:06 | PROVIDERS: PCP Physician Assistant; Visit Provider Physician Assistant | DX: N39.0 Urinary tract infection, site not specified (principal) | CPT/HCPCS: 87086 ==

== ENCOUNTER 2024-04-23 13:35 | Outpatient (CLI) | payer BC, SELFPAY | END 2024-04-23 23:59 | disposition home or self-care (01) | LOC: LAB.DROPOF 04-24 13:35 | PROVIDERS: PCP Physician Assistant; Visit Provider Physician Assistant | DX: N39.0 Urinary tract infection, site not specified (principal) | CPT/HCPCS: 87086 ==

== ENCOUNTER 2024-07-16 10:01 | Emergency (ER) | payer BC, SELFPAY ==
[2024-07-16 10:14] VITALS: BP 176/101; PULSE 97; RESP 20; TEMP 36.5; O2SAT 98; BMI 28.5
--- NOTE | 2024-07-16 10:22 | ED_ITS ---
Discharge Plan Disposition Patient Disposition: Home, Self-Care Condition: Good Prescriptions Prescriptions: New azithromycin [Zithromax Z-Sanya] 250 mg tablet See Rx Instructions .ROUTE .COMPLEX 5 Days Qty: 6 0RF Rx Instructions: For 250 mg dose pack: take 500 mg today (day 1), then 250 mg for 4 days (days 2-5) No Action levocetirizine [Xyzal] 5 mg tablet 5 mg PO DAILY Qty: 30 2RF mirtazapine [Remeron] 15 mg tablet 15 mg PO HS Qty: 30 2RF (DME) pen needle, diabetic [BD Ultra-Fine Mini Pen Needle] 31 gauge x 3/16 needle See Rx Instructions .ROUTE .MEDSUPPLY Qty: 1200 Rx Instructions: As directed (DME) blood-glucose meter [Accu-Chek Gail Plus Meter] [facility] See Rx Instructions .Route Qty: 1 0RF Rx Instructions: As directed (DME) pen needle, diabetic [Comfort EZ Pen [place]] 32 gauge x 1/4 needle See Rx Instructions .Route Qty: 50 0RF Rx Instructions: As directed losartan 25 mg tablet See Rx Instructions .ROUTE .COMPLEX Qty: 90 2RF Dose Instruction: TAKE 1/2 TABLET BY MOUTH ONCE DAILY Rx Instructions: TAKE 1/2 TABLET BY MOUTH ONCE DAILY atenolol 25 mg tablet See Rx Instructions .ROUTE .COMPLEX Qty: 90 0RF Dose Instruction: TAKE 1 TABLET BY MOUTH ONCE DAILY Rx Instructions: TAKE 1 TABLET BY MOUTH ONCE DAILY meloxicam 15 mg tablet See Rx Instructions .ROUTE .COMPLEX Qty: 90 0RF Dose Instruction: TAKE ONE TABLET BY MOUTH EVERY DAY FOR PAIN TAKE WITH FOOD Rx Instructions: TAKE ONE TABLET BY MOUTH EVERY DAY FOR PAIN TAKE WITH FOOD insulin glargine [Basaglar KwikPen U-100 Insulin] 100 unit/mL (3 mL) insulin pen 10 unit SQ HS Qty: 3 2RF (DME) pen needle, diabetic [Comfort EZ Pen [place]] 32 gauge x 3/16 needle See Rx Instructions .Route Qty: 100 0RF Rx Instructions: As directed (DME) OneTouch Ultra Test Strip See Rx Instructions .ROUTE .COMPLEX Qty: 100 0RF Dose Instruction: DIRECTED Rx Instructions: DIRECTED atorvastatin 10 mg tablet See Rx Instructions .ROUTE .COMPLEX Qty: 90 1RF Dose Instruction: TAKE 1 TABLET BY MOUTH ONCE DAILY Rx Instructions: TAKE 1 TABLET BY MOUTH ONCE DAILY sertraline 100 mg tablet See Rx Instructions .ROUTE .COMPLEX Qty: 90 0RF Dose Instruction: TAKE ONE TABLET BY MOUTH EVERY DAY Rx Instructions: TAKE ONE TABLET BY MOUTH EVERY DAY glipizide 10 mg tablet extended release 24hr See Rx Instructions .ROUTE .COMPLEX Qty: 90 0RF Dose Instruction: TAKE 1 TABLET BY MOUTH ONCE DAILY Rx Instructions: TAKE 1 TABLET BY MOUTH ONCE DAILY dapagliflozin propanediol [Farxiga] 5 mg tablet 5 mg PO DAILY Referrals Follow up/Referrals: Mari Allen PA [Primary Care Provider] - See instructions Activity Restrictions/Add. Instructions Additional Instructions/Restrictions: *Monitor Temp, Over the counter Motrin or Tylenol as directed/as needed Tylenol every 4 hours and Motrin every 6 hours (as long as your family doctor has told you that you can take it) for fever or pain. and straight to ER if unable to lower temp less than 101.0 after medication given *Warm salt water gargles may help to soothe the throat *Throat Lozenges? *Warm fluids like tea with honey may help to soothe the throat? *Sleep elevated *Humidifier/Vaporizer Follow up IMMEDIATELY for new or worsening symptoms or no Noticeable improvement over the next 48-72 hours. 911 for difficulty breathing or swallowing Clinical Impressions Clinical Impression: Sinusitis Instructions Patient Instructions: DI for Sinusitis, Sinusitis Print Language Print Language: Yoruba Discharge ED Provider: Reta Curtis [facility] General Stated complaint: headache, drainage, cough Mode of Arrival: Ambulatory Source of Information: Patient Time Seen by Provider: 07/16/24 10:22 Description of Symptoms (Recalled from Triage Doc. by RN): COUGH, RUNNY NOSE, HEAD PRESSURE, OTC MEDS NOT HELPING HEENT Symptoms (Recalled from RN notes): Yes Resp Symptoms (Recalled from RN notes): Yes Skin Symptoms (Recalled from RN notes): No MS Symptoms (Recalled from RN notes): No Functional Status (Recalled from RN notes): WNL History of Present Illness Provider Complaint: Patient states that she feels like she has a bad sinus infection States that she started last week with sinus congestion and pressure and it has continued to get worse States that she has been taking OTC sinus medications but they havent helped so she came in today to get something to help States barron usually knocks it out for her Related Data Home Medications ?Medication ?Instructions ?Recorded ?Confirmed pen needle, diabetic 31 gauge x #1,200 ea 04/19/24 04/23/2411/03 (BD Ultra-Fine Mini Pen Needle) dapagliflozin propanediol 5 mg 5 mg PO DAILY 07/16/24 07/16/24 tablet (Farxiga) Previous Rx's ?Medication ?Instructions ?Recorded blood-glucose meter (Accu-Chek #1 ea 08/30/21 Gail Plus Meter) pen needle, diabetic 32 gauge x #50 ea 09/21/2208/24 (Comfort EZ Pen [place]) losartan 25 mg tablet See Rx Instructions .Route 06/21/23 .COMPLEX #90 tabs atenolol 25 mg tablet See Rx Instructions .Route 07/31/23 .COMPLEX #90 tabs levocetirizine 5 mg tablet (Xyzal) 5 mg PO DAILY #30 tabs 10/31/23 meloxicam 15 mg tablet See Rx Instructions .Route 01/26/24 .COMPLEX #90 tabs mirtazapine 15 mg tablet (Remeron) 15 mg PO HS #30 tabs 03/29/24 insulin glargine 100 unit/mL (3 10 unit (0.1 mL) SQ HS #3 mL 04/01/24 mL) subcutaneous pen (Basaglar KwikPen U-100 Insulin) pen needle, diabetic 32 gauge x #100 ea 04/01/2411/03 (Comfort EZ Pen [place]) blood sugar diagnostic (OneTouch #100 ea 04/09/24 Ultra Test strips) atorvastatin 10 mg tablet See Rx Instructions .Route 04/24/24 .COMPLEX #90 ea glipizide 10 mg tablet, extended See Rx Instructions .Route 04/24/24 release 24 hr .COMPLEX #90 tabs sertraline 100 mg tablet See Rx Instructions .Route 04/24/24 .COMPLEX #90 tabs azithromycin 250 mg tablet See Rx Instructions PO .COMPLEX 5 07/16/24 (Zithromax Z-Sanya) days #6 tabs Allergies Allergy/AdvReac Type Severity Reaction Status Date / Time aspirin (ASPIRIN) Allergy Unknown EXTREME Verified 04/23/24 14:03 BRUISING lisinopril AdvReac Intermediate Verified 04/23/24 14:03 rosuvastatin (From Crestor) AdvReac Intermediate Verified 04/23/24 14:03 Worker's Comp Is this a Worker's Comp case?: No [facility] Disclaimer: The information contained in this section may have been updated after the patient was seen, as this information can be updated by other users. Medical History (Updated 07/16/24 @ 10:30 by Reta Curtis APRN) Deviated nasal septum Bilateral impacted cerumen Chronic sinusitis Otalgia, right ear Anxiety and depression Anxiety Vitamin D deficiency Osteoporosis Depression Hypertension GERD (gastroesophageal reflux disease) Diabetes mellitus Social History Smoking Status: Never smoker alcohol intake: never substance use type: denies use current occupational status: employed household members: spouse and children housing: house current occupational exposures/hazards: No caffeine: Yes ROS Obtained: Yes All systems reviewed & no additional complaints except as do cumented and Yes Systems reviewed as appropriate & no additional complaints except as documented Constitutional Constitutional: Reports system reviewed and no additional complaints, except as documented, Reports as per HPI and Reports headache(s) ENT Ears, Nose, Mouth, and Throat: Reports system reviewed and no additional complaints, except as documented, Reports as per HPI, Reports headache(s), Reports sinus pain and Reports sinus pressure Cardiovascular Cardiovascular: Reports system reviewed and no additional complaints, except as documented and Reports as per HPI Respiratory Respiratory: Reports system reviewed and no additional complaints, except as documented and Reports as per HPI Gastrointestinal Gastrointestingal: Reports system reviewed and no additional complaints, except as documented and as per HPI Neurologic Neurologic: Reports headache(s) Physical Exam General General appearance: alert and in no apparent distress ENT ENT exam: Present mucous membranes moist Expanded ENT Exam Nose exam: Present sinus tenderness Throat exam: Present normal inspection Respiratory Respiratory exam: Present normal lung sounds bilaterally; Absent respiratory distress or wheezes Cardiovascular Cardiovascular exam: Present regular rate, normal rhythm and normal heart sounds Abdominal Exam Abdominal exam: Present soft and normal bowel sounds; Absent distention or tenderness Neurological Exam Neurological exam: Present alert, oriented X3 and normal gait Medical Decision Making Medical Records Screening: Per USPSTF and CDC recommendations, given the prevalence of disease in our region, it is our hospital?s policy to screen for HIV and viral Hepatitis for all patients aged 18 and over and those with ongoing risk factors. Miguel Inquiry Pt receiving controlled substance: No Miguel was queried for this patient: No Vital Signs: 07/16/24 10:14 Temperature 97.7 F Temperature Source Oral Pulse Rate [Right Radial] 97 H Respiratory Rate 20 Blood Pressure [Left Arm] 176/101 H Blood Pressure Mean [Left Arm] 126 02 Sat by Pulse Oximetry 98
[2024-07-16 10:25] VITALS: BP 132/74
[2024-07-16 10:33] VITALS: BP 132/74; PULSE 97; RESP 20; TEMP 36.5
== END 2024-07-16 10:35 | disposition home or self-care (01) ==
PROVIDERS: Emergency Provider Nurse Practitioner; PCP Physician Assistant
DX: J01.90 Acute sinusitis, unspecified (principal)
CPT/HCPCS: 99213; G0381

== ENCOUNTER 2024-11-27 07:38 | Outpatient (CLI) | payer OTHER, SELFPAY ==
--- NOTE | 2024-11-27 | CA_ITS ---
FINAL REPORT TECHNIQUE: Graded compression, spectral analysis and ultrasound images of the venous system of the upper extremity were obtained. CLINICAL HISTORY: right arm pain x 2 weeks without injury COMPARISON: None FINDINGS: There is a short segment of the proximal cephalic vein which was incompletely compressed, attributed to technique without convincing thrombus. The right jugular vein, subclavian vein, axillary vein, brachial vein, cephalic vein and basilic venous system are otherwise normal, fully compressible and demonstrate no evidence of thrombosis. IMPRESSION: No evidence of thrombosis of the venous system of the right upper extremity. Reviewed, Interpreted and Dictated by Kenia Saravia MD Transcribed by Jenni Villalta Authenticated and [facility]
== END 2024-11-27 23:59 | disposition home or self-care (01) ==
PROVIDERS: PCP Physician Assistant; Visit Provider Physician Assistant
DX: M79.601 Pain in right arm (principal)
CPT/HCPCS: 93971